=== PATIENT | female | born 1965 | race Caucasian/White ===

== ENCOUNTER → 2016-07-31 | Outpatient (CLI) | payer BC ==
--- NOTE | 2016-07-31 13:42 | MY ---
EXAMINATION: Bilateral digital mammography utilizing CAD. HISTORY: Screening exam. Comparison is made to previous studies dated 07/26/2015, 01/30/2014. FINDINGS: Bilateral scattered fibroglandular densities. No suspicious calcifications, masses or ar chitectural distortions. No pathologic appearing lymph nodes, no abnormal skin thickening or nippl e inversion. CAD highlighted regions appear normal at this time. IMPRESSION: BI-RADS category I - negative mammogram. Continued screening according to ACR-ACS gu idelines suggested. THE FALSE-NEGATIVE RATE OF MAMMOGRAM IS APPROXIMATELY 10%. MANAGEMENT OF A PALPABLE ABNORMALITY MUST BE BASED UPON CLINICAL GROUNDS. SENSITIVITY FOR DETECTION OF ABNORMALITIES IN DENSE BREASTS IS LOW. NOTE: A letter will be sent to the patient regarding findings. [facility] -- NOHEMI Walsh [phone] - FAX [phone]
== END ==
LOC: MW.MAM 08:23
PROVIDERS: ATTEND Family Medicine
DX: Z12.31 Encounter for screening mammogram for malignant neoplasm of breast (principal)
CPT/HCPCS: G0202; G0202-26

== ENCOUNTER 2016-10-23 07:35 | Emergency (ER) | payer BC ==
[2016-10-23] MEDS ORDERED: Ondansetron 4 MG/2 ML SDV IVPUSH ONE (07:50)
[2016-10-23] MEDS ORDERED: Morphine 2 MG/ML Syringe IVPUSH ONE (07:50)
[2016-10-23] MEDS ORDERED: Sodium Chloride 0.9% 1,000 ML IV ONE (07:50)
[2016-10-23 08:23] LABS: CHLORIDE,CL 109 mmol/L (98-110); SODIUM,NA 140 mmol/L (136-146)
--- NOTE | 2016-10-23 08:39 | CR ---
EXAMINATION: Portable chest radiograph. HISTORY: Shortness of breath. FINDINGS: The trachea is midline. The cardiomediastinal silhouette is within normal limits. No pulmonary infil trates, effusions or pneumothorax. Osseous structures appear unremarkable. IMPRESSION: No acute cardiopulmonary process.
--- NOTE | 2016-10-23 08:46 | EDM.PDOC ---
ED HPI GENERAL MEDICAL PROBLEM - General Chief Complaint: Chest Pain Stated Complaint: CHEST AND BACK PAIN Time Seen by Provider: 10/23/16 07:42 Source of Information: Reports: Patient History Limitations: Reports: No Limitations - History of Present Illness INITIAL COMMENTS - FREE TEXT/NARRATIVE: History of present illness: []Patient started having epigastric pain radiating to her back last night, she also had an episode of bilateral leg pain with her calves becoming "hard as rock " last night and are now sore and developed buttock pain while in the ED. She has had no fevers or chills no nausea vomiting and states that she has had this symptom several years ago. She has a history of anxiety presents with similar symptoms in the past. Review of systems: As per history of present illness and below otherwise all systems reviewed and negative. Past medical history: As per history of present illness and as reviewed below otherwise noncontributory. Surgical history: As per history of present illness and as reviewed below otherwise noncontributory. Social history: No reported history of drug or alcohol abuse. Family history: As per history of present illness and as reviewed below otherwise noncontributory. Physical exam: General: Well developed, well nourished in NAD HEENT: Atraumatic, normocephalic, pupils reactive, negative for conjunctival pallor or scleral icterus, mucous membranes moist, throat clear, neck supple, nontender, trachea midline. Lungs: Clear to auscultation, breath sounds equal bilaterally, chest nontender. No respiratory distress, or accessory muscle use No rales or rhonchi. Heart: S1S2, regular, negative for clicks, rubs, or JVD. Femoral and distal pulses palpable with brisk capillary refill distally. Abdomen: Soft, nondistended, mild epigastric and left upper quadrant tenderness without rebound or guarding. Negative for masses or hepatosplenomegaly. Negative for costovertebral tenderness. Pelvis: Stable nontender. Genitourinary: Deferred. Rectal: Deferred. Extremities: Atraumatic, negative for cords, bilateral calf pain, without edema or discoloration of extremities, sensation intact. Neurovascular unremarkable. Neuro: Awake, alert, oriented. Cranial nerves II through XII unremarkable. Cerebellum unremarkable. Motor and sensory unremarkable throughout. Exam nonfocal. Diagnostics: []EKG shows normal sinus rhythm without any ischemia, CBC and chemistries are normal including troponin, d-dimer Therapeutics: []She was hydrated given 2 mg morphine for pain with marked improvement Impression: []Generalized body aches, abdominal pain, Plan: []Motrin for pain increase fluids follow up with PMD Definitive disposition and diagnosis as appropriate pending reevaluation and review of above. mid back/sternum/left side ribs Pain Score (Numeric/FACES): 4 - Related Data Allergies Allergy/AdvReac Type Severity Reaction Status Date / Time acetaminophen Allergy Nausea Verified 10/23/16 07:47 [From Lorcet 10650] atorvastatin Allergy myalgia Verified 10/23/16 07:47 bupropion HCl Allergy Rash Verified 10/23/16 07:47 [From Wellbutrin] cashew nut Allergy Rash Verified 10/23/16 07:47 codeine Allergy Nausea Verified 10/23/16 07:47 fluoxetine HCl [From Prozac] Allergy Nausea Verified 10/23/16 07:47 hydrocodone bitartrate Allergy Nausea Verified 10/23/16 07:47 [From Lorcet 10650] quetiapine fumarate Allergy Nausea Verified 10/23/16 07:47 [From Seroquel] sertraline HCl [From Zoloft] Allergy Rash Verified 10/23/16 07:47 Sulfa (Sulfonamide Allergy Rash Verified 10/23/16 07:47 Antibiotics) topiramate [From Topamax] Allergy Hives Verified 10/23/16 07:47 Home Meds: Home Meds Levothyroxine [Sythroid] 88 mcg PO DAILY 07/27/14 [History] Lisinopril 10 mg PO DAILY 07/27/14 [History] Past Medical History HEENT History: Reports: Impaired Vision Cardiovascular History: Reports: High Cholesterol, Hypertension Respiratory History: Reports: Sleep Apnea Other Respiratory History: states has mild sleep apnea- not sure if she needs a cpap, awaiting physician's evaluation. Gastrointestinal History: Reports: GERD Genitourinary History: Reports: None [employer] History: Reports: None Musculoskeletal History: Reports: Arthritis Neurological History: Reports: None Psychiatric History: Reports: Anxiety, Depression Endocrine/Metabolic History: Reports: Other (See Below) Other Endocrine/Metabolic History: graves disease Hematologic History: Reports: None Immunologic History: Reports: None Oncologic (Cancer) History: Reports: None Dermatologic History: Reports: Psoriasis - Infectious Disease History Infectious Disease History: Reports: Chicken Pox - Past Surgical History Head Surgeries/Procedures: Reports: None Cardiovascular Surgical History: Reports: Other (See Below) GI Surgical History: Reports: Cholecystectomy, Colonoscopy Social & Family History - Family History Family Medical History: Noncontributory - Tobacco Use Smoking Status *Q: Current Every Day Smoker Years of Tobacco use: 30 Packs/Tins Daily: 0.5 - Alcohol Use Days Per Week of Alcohol Use: 0 - Recreational Drug Use Recreational Drug Use: No ED ROS GENERAL - Review of Systems Review Of Systems: See Below (See history of present illness) ED EXAM, GENERAL - Physical Exam Exam: See Below (See history of present illness) Course - Vital Signs Last Recorded V/S: Last Vital Signs Temp 36.7 C 10/23/16 07:49 Pulse 88 10/23/16 07:49 Resp 16 10/23/16 07:49 BP 136/93 H 10/23/16 07:49 Pulse Ox 99 10/23/16 07:49 - Orders/Labs/Meds Orders: Active Orders 24 hr Category Date Time Status EKG 12 Lead [EKG Documentation Completion] [RC] STAT Care 10/23/16 07:29 Active Chest 1V Frontal [CR] Stat Exams 10/23/16 07:51 Taken Sodium Chloride 0.9% [Normal Saline] 1,000 ml Med 10/23/16 07:50 Active IV .Bolus Saline Lock Insert [OM.PC] Stat Oth 10/23/16 07:50 Ordered Medication Orders Sodium Chloride (Normal Saline) 1,000 mls @ 999 mls/hr IV .Bolus ONE Stop: 10/23/16 08:50 Last Admin: 10/23/16 08:04 Dose: 999 mls/hr Labs: Laboratory Tests 10/23/16 10/23/16 10/23/16 Range/Units 07:40 07:40 07:40 WBC 5.84 (4.0-11.0) K/uL RBC 4.80 (4.30-5.90) M/uL Hgb 15.7 (12.0-16.0) g/dL Hct 44.8 (36.0-46.0) % MCV 93.3 (80.0-98.0) fL MCH 32.7 H (27.0-32.0) pg MCHC 35.0 (31.0-37.0) g/dL RDW Std Deviation 44.7 (28.0-62.0) fl RDW Coeff of Jacqueline 13 (11.0-15.0) % Plt Count 179 (150-400) K/uL MPV 11.40 (7.40-12.00) fL Neut % (Auto) 67.2 (48.0-80.0) % Lymph % (Auto) 21.2 (16.0-40.0) % [place] % (Auto) 9.9 (0.0-15.0) % Eos % (Auto) 1.4 (0.0-7.0) % Baso % (Auto) 0.3 (0.0-1.5) % Neut # (Auto) 3.9 (1.4-5.7) K/uL Lymph # (Auto) 1.2 (0.6-2.4) K/uL [place] # (Auto) 0.6 (0.0-0.8) K/uL Eos # (Auto) 0.1 (0.0-0.7) K/uL Baso # (Auto) 0.0 (0.0-0.1) K/uL Nucleated RBC % 0.0 /100WBC Nucleated RBCs # 0 K/uL D-Dimer, Quantitative 0.22 (0.0-0.52) mg/LFEU Sodium 140 (136-146) mmol/L Potassium 4.1 (3.5-5.1) mmol/L Chloride 109 (98-110) mmol/L Carbon Dioxide 23 (21-31) mmol/L BUN 13 (6.0-23.0) mg/dL Creatinine 0.9 (0.6-1.5) mg/dL Est Cr Clr Drug Dosing 60.49 mL/min Estimated GFR (MDRD) > 60.0 ml/min Glucose 114 H (60-110) mg/dL Calcium 9.1 (8.8-10.8) mg/dL Total Bilirubin 0.4 (0.1-1.5) mg/dL AST 26 (5-40) IU/L ALT 44 (8-54) IU/L Alkaline Phosphatase 90 (40-150) Troponin I (0.0-0.29) NG/ML Total Protein 7.5 (6.0-8.0) g/dL Albumin 4.5 (3.5-5.0) g/dL Globulin 3.0 (2.0-3.5) g/dL Albumin/Globulin Ratio 1.5 (1.3-2.8) Lipase 62 (7-80) U/L 10/23/16 Range/Units 07:40 WBC (4.0-11.0) K/uL RBC (4.30-5.90) M/uL Hgb (12.0-16.0) g/dL Hct (36.0-46.0) % MCV (80.0-98.0) fL MCH (27.0-32.0) pg MCHC (31.0-37.0) g/dL RDW Std Deviation (28.0-62.0) fl RDW Coeff of Ajcqueline (11.0-15.0) % Plt Count (150-400) K/uL MPV (7.40-12.00) fL Neut % (Auto) (48.0-80.0) % Lymph % (Auto) (16.0-40.0) % [place] % (Auto) (0.0-15.0) % Eos % (Auto) (0.0-7.0) % Baso % (Auto) (0.0-1.5) % Neut # (Auto) (1.4-5.7) K/uL Lymph # (Auto) (0.6-2.4) K/uL [place] # (Auto) (0.0-0.8) K/uL Eos # (Auto) (0.0-0.7) K/uL Baso # (Auto) (0.0-0.1) K/uL Nucleated RBC % /100WBC Nucleated RBCs # K/uL D-Dimer, Quantitative (0.0-0.52) mg/LFEU Sodium (136-146) mmol/L Potassium (3.5-5.1) mmol/L Chloride (98-110) mmol/L Carbon Dioxide (21-31) mmol/L BUN (6.0-23.0) mg/dL Creatinine (0.6-1.5) mg/dL Est Cr Clr Drug Dosing mL/min Estimated GFR (MDRD) ml/min Glucose (60-110) mg/dL Calcium (8.8-10.8) mg/dL Total Bilirubin (0.1-1.5) mg/dL AST (5-40) IU/L ALT (8-54) IU/L Alkaline Phosphatase (40-150) Troponin I < 0.10 (0.0-0.29) NG/ML Total Protein (6.0-8.0) g/dL Albumin (3.5-5.0) g/dL Globulin (2.0-3.5) g/dL Albumin/Globulin Ratio (1.3-2.8) Lipase (7-80) U/L Meds: Medications Generic Name Dose Route Start Last Admin Trade Name Freq PRN Reason Stop Dose Admin Sodium Chloride 1,000 mls @ 999 mls/hr 10/23/16 07:50 10/23/16 08:04 Normal Saline IV 10/23/16 08:50 999 mls/hr .Bolus ONE Administration Discontinued Medications Generic Name Dose Route Start Last Admin Trade Name Freq PRN Reason Stop Dose Admin Morphine Sulfate 2 mg 10/23/16 07:50 10/23/16 08:08 Morphine IVPUSH 10/23/16 07:51 2 mg ONETIME ONE Administration Ondansetron HCl 4 mg 10/23/16 07:50 10/23/16 08:07 Zofran IVPUSH 10/23/16 07:51 4 mg ONETIME ONE Administration Departure - Departure Time of Disposition: 08:41 Disposition: Home, Self-Care 01 Condition: good Clinical Impression: Body aches - Discharge Information Forms: ED Department Discharge Additional Instructions: The following information is given to patients seen in the emergency department who are being discharged to home. This information is to outline your options for follow-up care. We provide all patients seen in our emergency department with a follow-up referral. The need for follow-up, as well as the timing and circumstances, are variable depending upon the specifics of your emergency department visit. If you don't have a primary care physician on staff, we will provide you with a referral. We always advise you to contact your personal physician following an emergency department visit to inform them of the circumstance of the visit and for follow-up with them and/or the need for any referrals to a consulting specialist. The emergency department will also refer you to a specialist when appropriate. This referral assures that you have the opportunity for follow-up care with a specialist. All of these measure are taken in an effort to provide you with optimal care, which includes your follow-up. Under all circumstances we always encourage you to contact your private physician who remains a resource for coordinating your care. When calling for follow-up care, please make the office aware that this follow-up is from your recent emergency room visit. If for any reason you are refused follow-up, please contact the [facility] Emergency Department at and asked to speak to the emergency department charge nurse. [facility] [address] [place] [address] - My Orders Last 24 Hours: My Active Orders 10/23/16 07:29 EKG 12 Lead [EKG Documentation Completion] [RC] STAT 10/23/16 07:50 Sodium Chloride 0.9% [Normal Saline] 1,000 ml IV .Bolus Saline Lock Insert [OM.PC] Stat 10/23/16 07:51 Chest 1V Frontal [CR] Stat - Assessment/Plan Last 24 Hours: My Active Orders 10/23/16 07:29 EKG 12 Lead [EKG Documentation Completion] [RC] STAT 10/23/16 07:50 Sodium Chloride 0.9% [Normal Saline] 1,000 ml IV .Bolus Saline Lock Insert [OM.PC] Stat 10/23/16 07:51 Chest 1V Frontal [CR] Stat
[2016-10-23 09:21] VITALS: BP 113/72
== END 2016-10-23 09:05 | disposition home or self-care (01) ==
LOC: MW.ED 07:35
DX: R10.13 Epigastric pain (principal); R10.12 Left upper quadrant pain; I10 Essential (primary) hypertension; E78.00 Pure hypercholesterolemia, unspecified; G47.30 Sleep apnea, unspecified; K21.9 Gastro-esophageal reflux disease without esophagitis; M19.90 Unspecified osteoarthritis, unspecified site; F41.9 Anxiety disorder, unspecified; F32.9 Major depressive disorder, single episode, unspecified; F17.210 Nicotine dependence, cigarettes, uncomplicated; Z98.890 Other specified postprocedural states; Z79.899 Other long term (current) drug therapy; Z88.2 Allergy status to sulfonamides; Z88.5 Allergy status to narcotic agent; Z88.6 Allergy status to analgesic agent; Z88.8 Allergy status to other drugs, medicaments and biological substances; Z91.018 Allergy to other foods
CPT/HCPCS: 36415; 71010; 80053; 83690; 84484; 85025; 85379; 93005; 96361; 96374; 96375; 99285; J2270; J2405; J7040; 99284

== ENCOUNTER 2019-04-21 12:31 | Emergency (ER) | payer BC ==
[2019-04-21] MEDS ORDERED: Sodium Chloride 0.9% 10 ML Syringe FLUSH PRN (12:33)
[2019-04-21] MEDS ORDERED: Sodium Chloride 0.9% 1,000 ML IV ONE (12:33)
[2019-04-21] MEDS ORDERED: Sodium Chloride 0.9% 2.5 ML Syringe FLUSH PRN (12:33)
--- NOTE | 2019-04-21 12:39 | EDM.PDOC ---
ED HPI GENERAL MEDICAL PROBLEM - General Stated Complaint: LIGHT HEADED Time Seen by Provider: 04/21/19 12:34 Source of Information: Reports: Patient History Limitations: Reports: No Limitations - History of Present Illness INITIAL COMMENTS - FREE TEXT/NARRATIVE: HISTORY AND PHYSICAL: History of present illness: Patient is a 53-year-old female who presents to the emergency room with complaints of palpitations, near syncope and generally feeling unwell. She states this morning she was sitting at her desk while at work and she felt "shaky". She does have a history of type 2 diabetes and has had episodes of hyper glycemia and hypoglycemia. She thought maybe her blood sugar was low and ate some candy. Her symptoms did not improve decided she was going to drive herself to the emergency room. While in her vehicle she states she had palpitations and thought she was going to pass out. 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 Upon arrival she states she feels still tremulous and generally unwell. Patient denies any fever, chills, headache, change in vision, neck pain or stiffness. Denies any chest pain, back pain, shortness of breath or cough. Denies any abdominal pain, nausea, vomiting, diarrhea, constipation or dysuria. Has not noted any blood in urine or stool. Patient has been eating and drinking appropriately. Review of systems: As per history of present illness and below otherwise all systems reviewed and negative. Past medical history: As per history of present illness and as reviewed below otherwise noncontributory. Surgical history: As per history of present illness and as reviewed below otherwise noncontributory. Social history: See social history for further information Family history: As per history of present illness and as reviewed below otherwise noncontributory. Physical exam: General: Well-developed and well-nourished 53-year-old female. Alert and oriented. Nontoxic appearing and in no acute distress. HEENT: Atraumatic, normocephalic, pupils equal and reactive bilaterally, negative for conjunctival pallor or scleral icterus, mucous membranes moist, TMs normal bilaterally, throat clear, neck supple, nontender, trachea midline. No drooling or trismus noted. No meningeal signs. No hot potato voice noted. Lungs: Clear to auscultation, breath sounds equal bilaterally, chest nontender. Heart: S1S2, regular rate and rhythm without overt murmur Abdomen: Soft, nondistended, nontender. Negative for masses or hepatosplenomegaly. Negative for costovertebral tenderness. Pelvis: Stable nontender. Skin: Intact, warm, dry. No lesions or rashes noted. Extremities: Atraumatic, moves all extremities per self without difficulty or deficits, negative for cords or calf pain. Neurovascular unremarkable. Neuro: Awake, alert, oriented. Cranial nerves II through XII unremarkable. Cerebellum unremarkable. Motor and sensory unremarkable throughout. Exam nonfocal. Notes: Lab work is unremarkable. Negative head CT and chest x-ray. Orthostatic vital signs are unremarkable. Patient states she does feel improved since arrival to the emergency room and receiving fluids. She has been up to ambulate to use the bathroom without assistance. All diagnostics were shared with the patient. We did discuss admission which she declines at this time. We discussed signs and symptoms that would prompt her to return to the emergency room. Supportive care measures were reviewed and discussed. Voices understanding and is agreeable to plan of care. Denies any further questions or concerns at this time. Diagnostics: CBC, CMP, UA, TSH, Troponin, EKG, CXR, Head CT, Orthostatic VS, Influenza Therapeutics: IV fluids Prescription: None Impression: Lightheaded Plan: 1. Please use Tylenol and/or Ibuprofen as needed for pain and fever management. 2. Get plenty of Rest. Encourage fluids to prevent dehydration. Small frequent meals throughout the day. Continue to monitor blood sugar as able. 3. Please follow up with your primary care provider. Return to the ED as needed as discussed. Definitive disposition and diagnosis as appropriate pending reevaluation and review of above. - Related Data Allergies Allergy/AdvReac Type Severity Reaction Status Date / Time acetaminophen Allergy Nausea Verified 10/23/16 07:47 [From Lorcet ] atorvastatin Allergy myalgia Verified 10/23/16 07:47 bupropion HCl Allergy Rash Verified 10/23/16 07:47 [From Wellbutrin] cashew nut Allergy Rash Verified 10/23/16 07:47 codeine Allergy Nausea Verified 10/23/16 07:47 fluoxetine HCl [From Prozac] Allergy Nausea Verified 10/23/16 07:47 hydrocodone bitartrate Allergy Nausea Verified 10/23/16 07:47 [From Lorcet ] quetiapine fumarate Allergy Nausea Verified 10/23/16 07:47 [From Seroquel] sertraline HCl [From Zoloft] Allergy Rash Verified 10/23/16 07:47 Sulfa (Sulfonamide Allergy Rash Verified 10/23/16 07:47 Antibiotics) topiramate [From Topamax] Allergy Hives Verified 10/23/16 07:47 Home Meds: Home Meds Levothyroxine [Sythroid] 88 mcg PO DAILY 07/27/14 [History] Lisinopril 10 mg PO DAILY 07/27/14 [History] Past Medical History HEENT History: Reports: Impaired Vision Cardiovascular History: Reports: High Cholesterol, Hypertension Respiratory History: Reports: Sleep Apnea Other Respiratory History: states has mild sleep apnea- not sure if she needs a cpap, awaiting physician's evaluation. Gastrointestinal History: Reports: GERD Genitourinary History: Reports: None [employer]ER History: Reports: None Musculoskeletal History: Reports: Arthritis Neurological History: Reports: None Psychiatric History: Reports: Anxiety, Depression Endocrine/Metabolic History: Reports: Other (See Below) Other Endocrine/Metabolic History: graves disease Hematologic History: Reports: None Immunologic History: Reports: None Oncologic (Cancer) History: Reports: None Dermatologic History: Reports: Psoriasis - Infectious Disease History Infectious Disease History: Reports: Chicken Pox - Past Surgical History Head Surgeries/Procedures: Reports: None Cardiovascular Surgical History: Reports: Other (See Below) GI Surgical History: Reports: Cholecystectomy, Colonoscopy Social & Family History - Family History Family Medical History: Noncontributory - Caffeine Use Caffeine Use: Reports: None ED ROS GENERAL - Review of Systems Review Of Systems: Comprehensive ROS is negative, except as noted in HPI. ED EXAM, GENERAL - Physical Exam Exam: See Below (SEe dictation) Course - Vital Signs Last Recorded V/S: Last Vital Signs Temp 97.7 F 04/21/19 12:36 Pulse 92 04/21/19 12:36 Resp 18 04/21/19 12:36 BP 139/78 04/21/19 12:36 Pulse Ox 99 04/21/19 12:36 Orthostatic Blood Pressure [ 146/91 Standing] Orthostatic Blood Pressure [ 129/72 Sitting] Orthostatic Blood Pressure [ 129/76 Supine] - Orders/Labs/Meds Orders: Active Orders 24 hr Category Date Time Status EKG Documentation Completion [RC] STAT Care 04/21/19 12:33 Active Orthostatic Vital Signs [RC] ASDIRECTED Care 04/21/19 12:33 Active COMPREHENSIVE METABOLIC PN,CMP [CHEM] Stat Lab 04/21/19 12:35 Results TROPONIN I [CHEM] Stat Lab 04/21/19 12:35 Results TSH [CHEM] Stat Lab 04/21/19 12:35 Results Sodium Chloride 0.9% [Saline Flush] Med 04/21/19 12:33 Active 10 ml FLUSH ASDIRECTED PRN Sodium Chloride 0.9% [Saline Flush] Med 04/21/19 12:33 Active 2.5 ml FLUSH ASDIRECTED PRN Saline Lock Insert [OM.PC] Stat Oth 04/21/19 12:33 Ordered Medication Orders Sodium Chloride (Saline Flush) 10 ml FLUSH ASDIRECTED PRN PRN Reason: Keep Vein Open Sodium Chloride (Saline Flush) 2.5 ml FLUSH ASDIRECTED PRN PRN Reason: Keep Vein Open Labs: Laboratory Tests 04/21/19 04/21/19 04/21/19 Range/Units 12:35 12:35 13:04 WBC 6.55 (4.0-11.0) K/uL RBC 4.73 (4.30-5.90) M/uL Hgb 15.7 (12.0-16.0) g/dL Hct 44.8 (36.0-46.0) % MCV 94.7 (80.0-98.0) fL MCH 33.2 H (27.0-32.0) pg MCHC 35.0 (31.0-37.0) g/dL RDW Std Deviation 44.5 (28.0-62.0) fl RDW Coeff of Jacqueline 13 (11.0-15.0) % Plt Count 191 (150-400) K/uL MPV 12.30 H (7.40-12.00) fL Neut % (Auto) 55.1 (48.0-80.0) % Lymph % (Auto) 31.3 (16.0-40.0) % Garfield % (Auto) 11.0 (0.0-15.0) % Eos % (Auto) 2.0 (0.0-7.0) % Baso % (Auto) 0.6 (0.0-1.5) % Neut # (Auto) 3.6 (1.4-5.7) K/uL Lymph # (Auto) 2.1 (0.6-2.4) K/uL Garfield # (Auto) 0.7 (0.0-0.8) K/uL Eos # (Auto) 0.1 (0.0-0.7) K/uL Baso # (Auto) 0.0 (0.0-0.1) K/uL Nucleated RBC % 0.0 /100WBC Nucleated RBCs # 0 K/uL Sodium 138 (136-145) mmol/L Potassium 3.6 (3.5-5.1) mmol/L Chloride 103 (98-107) mmol/L Carbon Dioxide 26.1 (21.0-32.0) mmol/L BUN 12 (7.0-18.0) mg/dL Creatinine 0.9 (0.6-1.0) mg/dL Est Cr Clr Drug Dosing 59.11 mL/min Estimated GFR (MDRD) > 60.0 ml/min Glucose 192 H (74-106) mg/dL Calcium 8.2 L (8.5-10.1) mg/dL Total Bilirubin 0.5 (0.2-1.0) mg/dL Alkaline Phosphatase 106 (46-116) U/L Troponin I < 0.050 (0.000-0.056) ng/mL Total Protein 7.5 (6.4-8.2) g/dL Albumin 3.9 (3.4-5.0) g/dL Globulin 3.6 (2.6-4.0) g/dL Albumin/Globulin Ratio 1.1 (0.9-1.6) TSH 3rd Generation 1.87 (0.36-3.74) uIU/mL Urine Color YELLOW Urine Appearance CLEAR Urine pH 6.0 (5.0-8.0) Ur Specific [place] <= 1.005 (1.001-1.035) Urine Protein NEGATIVE (NEGATIVE) mg/dL Urine Glucose (UA) 250 H (NEGATIVE) mg/dL Urine Ketones NEGATIVE (NEGATIVE) mg/dL Urine Occult Blood NEGATIVE (NEGATIVE) Urine Nitrite NEGATIVE (NEGATIVE) Urine Bilirubin NEGATIVE (NEGATIVE) Urine Urobilinogen 0.2 (<2.0) EU/dL Ur Leukocyte Esterase NEGATIVE (NEGATIVE) Meds: Medications Generic Name Dose Route Start Last Admin Trade Name Freq PRN Reason Stop Dose Admin Sodium Chloride 10 ml 04/21/19 12:33 Saline Flush FLUSH ASDIRECTED PRN Keep Vein Open Sodium Chloride 2.5 ml 04/21/19 12:33 Saline Flush FLUSH ASDIRECTED PRN Keep Vein Open Discontinued Medications Generic Name Dose Route Start Last Admin Trade Name Freq PRN Reason Stop Dose Admin Sodium Chloride 1,000 mls @ 999 mls/hr 04/21/19 12:33 Normal Saline IV 04/21/19 13:33 STAT ONE Departure - Departure Time of Disposition: 14:12 Disposition: Home, Self-Care 01 Clinical Impression: Lightheaded - Discharge Information Instructions: Dizziness, [id number] Referrals: PCP,Unobtain [Primary Care Provider] - Additional Instructions: The following information is given to patients seen in the emergency department who are being discharged to home. This information is to outline your options for follow-up care. We provide all patients seen in our emergency department with a follow-up referral. The need for follow-up, as well as the timing and circumstances, are variable depending upon the specifics of your emergency department visit. If you don't have a primary care physician on staff, we will provide you with a referral. We always advise you to contact your personal physician following an emergency department visit to inform them of the circumstance of the visit and for follow-up with them and/or the need for any referrals to a consulting specialist. The emergency department will also refer you to a specialist when appropriate. This referral assures that you have the opportunity for follow-up care with a specialist. All of these measure are taken in an effort to provide you with optimal care, which includes your follow-up. Under all circumstances we always encourage you to contact your private physician who remains a resource for coordinating your care. When calling for follow-up care, please make the office aware that this follow-up is from your recent emergency room visit. If for any reason you are refused follow-up, please contact the [facility] Emergency Department at and asked to speak to the emergency department charge nurse. [facility] [address] [place] [id number] [address] 1. Please use Tylenol and/or Ibuprofen as needed for pain and fever management. 2. Get plenty of Rest. Encourage fluids to prevent dehydration. Small frequent meals throughout the day. Continue to monitor blood sugar as able. 3. Please follow up with your primary care provider. Return to the ED as needed as discussed. - My Orders Last 24 Hours: My Active Orders 04/21/19 12:33 EKG Documentation Completion [RC] STAT Orthostatic Vital Signs [RC] ASDIRECTED Sodium Chloride 0.9% [Saline Flush] 10 ml FLUSH ASDIRECTED PRN Sodium Chloride 0.9% [Saline Flush] 2.5 ml FLUSH ASDIRECTED PRN Saline Lock Insert [OM.PC] Stat 04/21/19 12:35 COMPREHENSIVE METABOLIC PN,CMP [CHEM] Stat TROPONIN I [CHEM] Stat TSH [CHEM] Stat - Assessment/Plan Last 24 Hours: My Active Orders 04/21/19 12:33 EKG Documentation Completion [RC] STAT Orthostatic Vital Signs [RC] ASDIRECTED Sodium Chloride 0.9% [Saline Flush] 10 ml FLUSH ASDIRECTED PRN Sodium Chloride 0.9% [Saline Flush] 2.5 ml FLUSH ASDIRECTED PRN Saline Lock Insert [OM.PC] Stat 04/21/19 12:35 COMPREHENSIVE METABOLIC PN,CMP [CHEM] Stat TROPONIN I [CHEM] Stat TSH [CHEM] Stat
--- NOTE | 2019-04-21 13:06 | CR ---
Chest: Portable view of the chest was obtained. Comparison: Prior chest x-ray of 02/08/17. Heart size and mediastinum are normal. Lungs are clear. Bony structures are grossly intact. Surgical clips are seen prior cholecystectomy. Impression: 1. Nothing acute is seen on portable chest x-ray. 2. Other incidental findings. Diagnostic code #2 This report was dictated in [place] Standard Time MTDD
[2019-04-21 13:28] LABS: BLOOD UREA NITROGEN,BUN 12 mg/dL (7.0-18.0); CARBON DIOXIDE,CO2 26.1 mmol/L (21.0-32.0); CHLORIDE,CL 103 mmol/L (98-107); GLUCOSE RANDOM 192 mg/dL (74-106); POTASSIUM,K 3.6 mmol/L (3.5-5.1); SODIUM,NA 138 mmol/L (136-145)
--- NOTE | 2019-04-21 13:59 | CT ---
INDICATION: Headache, dizziness. COMPARISON: Head CT dated 06/21/2015 TECHNIQUE: A CT volumetric acquisition was performed of the brain without IV contrast. FINDINGS: There is no evidence of a subdural or epidural hematoma. There is no evidence of subarachnoid hemorrhage or intraparenchymal bleeding. The CT images reveal a normal appearance of the cerebral ventricles and basal cisterns. There is no evidence of localized tissue infarction or mass effect. There is normal gómez white matter differentiation. The mastoid air cells and middle ear cavities are clear. The calvarium appears intact. There is normal aeration of the visualized paranasal sinuses. IMPRESSION: Negative head CT. Please note that all CT scans at this facility use dose modulation, iterative reconstruction, and/or weight-based dosing when appropriate to reduce radiation dose to as low as reasonably achievable. Dictated by Silverio Harmon MD @ Apr 21 2019 1:52PM Signed by Dr. Silverio Harmon @ Apr 21 2019 1:56PM
[2019-04-21 14:10] VITALS: BP 115/71; PULSE 78
== END 2019-04-21 14:31 | disposition home or self-care (01) ==
LOC: MW.ED 12:31
DX: R42 Dizziness and giddiness (principal); I10 Essential (primary) hypertension; Z88.2 Allergy status to sulfonamides; Z88.8 Allergy status to other drugs, medicaments and biological substances; Z88.5 Allergy status to narcotic agent; Z79.899 Other long term (current) drug therapy; Z90.49 Acquired absence of other specified parts of digestive tract
CPT/HCPCS: 70450; 71045; 80053; 81003; 84443; 84484; 85025; 87804; 93005; 96360; 99285; J7030; 99284

== ENCOUNTER 2020-04-06 04:04 | Emergency (ER) | payer SELFPAY ==
[2020-04-06] MEDS ORDERED: Meclizine 25 MG Tab PO ONE (04:23)
--- NOTE | 2020-04-06 04:29 | EDM.PDOC ---
<Hank Grover - Last Filed: 04/06/20 06:56> ED HPI GENERAL MEDICAL PROBLEM - General Chief Complaint: General Stated Complaint: DIZZINESS Time Seen by Provider: 04/06/20 04:20 Source of Information: Reports: Patient History Limitations: Reports: No Limitations - History of Present Illness INITIAL COMMENTS - FREE TEXT/NARRATIVE: 54-year-old female presents with dizziness. She got up to go to the bathroom and as she sat down on the toilet seat she experiences acute onset room spinning sensation, associated with nausea. Symptom was transient. As she was going back to bed the dizziness sensation came back. Her symptoms improved when she fixated at the ground. Associated with bilateral ringing sensation in his ears and diffuse tingling sensation in all extremities. She denies hearing loss, blurry vision, fever, chills, headache, chest pain, shortness of breath, abdominal pain, focal numbness or weakness. ROS: A 10-point review of systems, other than pertinent positives and negatives as stated per HPI, is otherwise negative Past medical history: No additional pertinent history Past Surgical history: No additional pertinent history Social history: No additional pertinent history Family history: No additional pertinent history PHYSICAL EXAM General: AOx4, GCS = 15, No distress HEENT: dry mucous membrane, fatigable horizontal nystagmus. Neck: supple, no meningismus, no Kernig or Brudzinski Cardiac: S1S2 RRR Respiratory: CTAB, no crackles or rales, no wheezing Abdomen: Soft, nontender, no rebound or guarding, nondistended, no pulsatile mass. Back: nontender Musculoskeletal: NVI distally, no deformity Neuro: No focal deficits, fatigable horizontal nystagmus. - Related Data Allergies Allergy/AdvReac Type Severity Reaction Status Date / Time acetaminophen Allergy Nausea Verified 04/06/20 04:10 [From Lorcet ] atorvastatin Allergy myalgia Verified 04/06/20 04:10 bupropion HCl Allergy Rash Verified 04/06/20 04:10 [From Wellbutrin] cashew nut Allergy Rash Verified 04/06/20 04:10 codeine Allergy Nausea Verified 04/06/20 04:10 fluoxetine HCl [From Prozac] Allergy Nausea Verified 04/06/20 04:10 hydrocodone bitartrate Allergy Nausea Verified 04/06/20 04:10 [From Lorcet ] quetiapine fumarate Allergy Nausea Verified 04/06/20 04:10 [From Seroquel] sertraline HCl [From Zoloft] Allergy Rash Verified 04/06/20 04:10 Sulfa (Sulfonamide Allergy Rash Verified 04/06/20 04:10 Antibiotics) topiramate [From Topamax] Allergy Hives Verified 04/06/20 04:10 Home Meds: Home Meds Levothyroxine [Sythroid] 88 mcg PO DAILY 07/27/14 [History] Lisinopril 10 mg PO DAILY 07/27/14 [History] Meclizine [Antivert] 25 mg PO TID PRN #15 tab 04/06/20 [Rx] Past Medical History HEENT History: Reports: Impaired Vision Cardiovascular History: Reports: High Cholesterol, Hypertension Respiratory History: Reports: Sleep Apnea Other Respiratory History: states has mild sleep apnea- not sure if she needs a cpap, awaiting physician's evaluation. Gastrointestinal History: Reports: GERD Genitourinary History: Reports: None MOSAIC TILER History: Reports: None Musculoskeletal History: Reports: Arthritis Neurological History: Reports: None Psychiatric History: Reports: Anxiety, Depression Endocrine/Metabolic History: Reports: Other (See Below) Other Endocrine/Metabolic History: graves disease Hematologic History: Reports: None Immunologic History: Reports: None Oncologic (Cancer) History: Reports: None Dermatologic History: Reports: Psoriasis - Infectious Disease History Infectious Disease History: Reports: Chicken Pox - Past Surgical History Head Surgeries/Procedures: Reports: None Cardiovascular Surgical History: Reports: Other (See Below) Other Cardiovascular Surgeries/Procedures: Heart Cath with no stent placement GI Surgical History: Reports: Cholecystectomy, Colonoscopy Female Surgical History: Reports: Other (See Below) Other Female Surgeries/Procedures: hx laparoscopy, hysteroscopy, D&C x4 Social & Family History - Family History Family Medical History: No Pertinent Family History - Tobacco Use Tobacco Use Status *Q: Current Every Day Tobacco User Years of Tobacco use: 25 Packs/Tins Daily: 1 - Caffeine Use Caffeine Use: Reports: Soda - Recreational Drug Use Recreational Drug Use: No ED ROS GENERAL - Review of Systems Review Of Systems: See Below (ictationsee dictation) ED EXAM, GENERAL - Physical Exam Exam: See Below (see dictation) #1 Interpretation EKG Interpretation Comments: Heart rate = 74 bpm, normal sinus rhythm, normal QRS interval, no STEMI. EKG and rhythm strip interpreted by me at 1837 Course - Re-Assessments/Exams Free Text/Narrative Re-Assessment/Exam: 04/06/20 04:31 After p.o. meclizine 25 mg, her dizziness is unchanged, will give IV Valium 5 mg. 04/06/20 06:28 Patient is still feeling the dizziness 04/06/20 06:59 Patient signed out to Dr. Lagunas for ultimate disposition. Departure - Departure Time of Disposition: 06:29 Disposition: Home, Self-Care 01 Condition: Good Clinical Impression: Dizziness, Vertigo - Discharge Information *PRESCRIPTION DRUG MONITORING PROGRAM REVIEWED*: Not Applicable *COPY OF PRESCRIPTION DRUG MONITORING REPORT IN PATIENT AMBERLY: Not Applicable Sepsis Event Note (ED) - Evaluation Sepsis Screening Result: No Definite Risk <Daryl Lagunas - Last Filed: 04/06/20 10:35> Course - Vital Signs Last Recorded V/S: Last Vital Signs Temp 96.8 F L 04/06/20 10:20 Pulse 77 04/06/20 10:20 Resp 18 04/06/20 10:20 BP 115/73 04/06/20 10:20 Pulse Ox 97 04/06/20 10:20 - Orders/Labs/Meds Orders: Active Orders 24 hr Category Date Time Status EKG Documentation Completion [RC] STAT Care 04/06/20 06:26 Active Sodium Chloride 0.9% [Saline Flush] Med 04/06/20 06:25 Active 10 ml FLUSH ASDIRECTED PRN Sodium Chloride 0.9% [Saline Flush] Med 04/06/20 06:25 Active 2.5 ml FLUSH ASDIRECTED PRN Saline Lock Insert [OM.PC] Stat Oth 04/06/20 06:25 Ordered Medication Orders Sodium Chloride (Saline Flush) 10 ml FLUSH ASDIRECTED PRN PRN Reason: Keep Vein Open Last Admin: 04/06/20 06:41 Dose: 10 ml Documented by: IMELDA Sodium Chloride (Saline Flush) 2.5 ml FLUSH ASDIRECTED PRN PRN Reason: Keep Vein Open Last Admin: 04/06/20 06:41 Dose: 2.5 ml Documented by: IMELDA Labs: Laboratory Tests 04/06/20 04/06/20 04/06/20 Range/Units 06:34 06:34 06:34 WBC 5.56 (4.0-11.0) K/uL RBC 4.82 (4.30-5.90) M/uL Hgb 15.4 (12.0-16.0) g/dL Hct 45.0 (36.0-46.0) % MCV 93.4 (80.0-98.0) fL MCH 32.0 (27.0-32.0) pg MCHC 34.2 (31.0-37.0) g/dL RDW Std Deviation 42.9 (28.0-62.0) fl RDW Coeff of Jacqueline 13 (11.0-15.0) % Plt Count 169 (150-400) K/uL MPV 11.50 (7.40-12.00) fL Neut % (Auto) 65.3 (48.0-80.0) % Lymph % (Auto) 20.3 (16.0-40.0) % [place] % (Auto) 12.6 (0.0-15.0) % Eos % (Auto) 1.3 (0.0-7.0) % Baso % (Auto) 0.5 (0.0-1.5) % Neut # (Auto) 3.6 (1.4-5.7) K/uL Lymph # (Auto) 1.1 (0.6-2.4) K/uL [place] # (Auto) 0.7 (0.0-0.8) K/uL Eos # (Auto) 0.1 (0.0-0.7) K/uL Baso # (Auto) 0.0 (0.0-0.1) K/uL Nucleated RBC % 0.0 /100WBC Nucleated RBCs # 0 K/uL INR 1.00 Sodium 142 (136-145) mmol/L Potassium 4.2 (3.5-5.1) mmol/L Chloride 108 H (98-107) mmol/L Carbon Dioxide 25.0 (21.0-32.0) mmol/L BUN 14 (7.0-18.0) mg/dL Creatinine 0.8 (0.6-1.0) mg/dL Est Cr Clr Drug Dosing 65.73 mL/min Estimated GFR (MDRD) > 60.0 ml/min Glucose 114 H (74-106) mg/dL Calcium 9.0 (8.5-10.1) mg/dL Total Bilirubin 0.4 (0.2-1.0) mg/dL AST 19 (15-37) IU/L ALT 38 (14-63) IU/L Alkaline Phosphatase 110 (46-116) U/L Troponin I < 0.050 (0.000-0.056) ng/mL Total Protein 7.0 (6.4-8.2) g/dL Albumin 3.7 (3.4-5.0) g/dL Globulin 3.3 (2.6-4.0) g/dL Albumin/Globulin Ratio 1.1 (0.9-1.6) Urine Color Urine Appearance Urine pH (5.0-8.0) Ur Specific Sargent (1.001-1.035) Urine Protein (NEGATIVE) mg/dL Urine Glucose (UA) (NEGATIVE) mg/dL Urine Ketones (NEGATIVE) mg/dL Urine Occult Blood (NEGATIVE) Urine Nitrite (NEGATIVE) Urine Bilirubin (NEGATIVE) Urine Urobilinogen (<2.0) EU/dL Ur Leukocyte Esterase (NEGATIVE) Urine RBC (0-2/HPF) Urine WBC (0-5/HPF) Ur Epithelial Cells (NONE-FEW) Urine Bacteria (NEGATIVE) SARS-CoV-2 RNA (HENOK) (NEGATIVE) 04/06/20 04/06/20 Range/Units 06:59 07:35 WBC (4.0-11.0) K/uL RBC (4.30-5.90) M/uL Hgb (12.0-16.0) g/dL Hct (36.0-46.0) % MCV (80.0-98.0) fL MCH (27.0-32.0) pg MCHC (31.0-37.0) g/dL RDW Std Deviation (28.0-62.0) fl RDW Coeff of Jacqueline (11.0-15.0) % Plt Count (150-400) K/uL MPV (7.40-12.00) fL Neut % (Auto) (48.0-80.0) % Lymph % (Auto) (16.0-40.0) % [place] % (Auto) (0.0-15.0) % Eos % (Auto) (0.0-7.0) % Baso % (Auto) (0.0-1.5) % Neut # (Auto) (1.4-5.7) K/uL Lymph # (Auto) (0.6-2.4) K/uL [place] # (Auto) (0.0-0.8) K/uL Eos # (Auto) (0.0-0.7) K/uL Baso # (Auto) (0.0-0.1) K/uL Nucleated RBC % /100WBC Nucleated RBCs # K/uL INR Sodium (136-145) mmol/L Potassium (3.5-5.1) mmol/L Chloride (98-107) mmol/L Carbon Dioxide (21.0-32.0) mmol/L BUN (7.0-18.0) mg/dL Creatinine (0.6-1.0) mg/dL Est Cr Clr Drug Dosing mL/min Estimated GFR (MDRD) ml/min Glucose (74-106) mg/dL Calcium (8.5-10.1) mg/dL Total Bilirubin (0.2-1.0) mg/dL AST (15-37) IU/L ALT (14-63) IU/L Alkaline Phosphatase (46-116) U/L Troponin I (0.000-0.056) ng/mL Total Protein (6.4-8.2) g/dL Albumin (3.4-5.0) g/dL Globulin (2.6-4.0) g/dL Albumin/Globulin Ratio (0.9-1.6) Urine Color YELLOW Urine Appearance CLEAR Urine pH 6.0 (5.0-8.0) Ur Specific Sargent <= 1.005 (1.001-1.035) Urine Protein NEGATIVE (NEGATIVE) mg/dL Urine Glucose (UA) NEGATIVE (NEGATIVE) mg/dL Urine Ketones NEGATIVE (NEGATIVE) mg/dL Urine Occult Blood TRACE-INTACT H (NEGATIVE) Urine Nitrite NEGATIVE (NEGATIVE) Urine Bilirubin NEGATIVE (NEGATIVE) Urine Urobilinogen 0.2 (<2.0) EU/dL Ur Leukocyte Esterase NEGATIVE (NEGATIVE) Urine RBC 0-2 (0-2/HPF) Urine WBC 0-1 (0-5/HPF) Ur Epithelial Cells FEW (NONE-FEW) Urine Bacteria RARE (NEGATIVE) SARS-CoV-2 RNA (HENOK) NEGATIVE (NEGATIVE) Meds: Medications Generic Name Dose Route Start Last Admin Trade Name Gin PRN Reason Stop Dose Admin Sodium Chloride 10 ml 04/06/20 06:25 04/06/20 06:41 Saline Flush FLUSH 10 ml ASDIRECTED PRN Administration Keep Vein Open Sodium Chloride 2.5 ml 04/06/20 06:25 04/06/20 06:41 Saline Flush FLUSH 2.5 ml ASDIRECTED PRN Administration Keep Vein Open Discontinued Medications Generic Name Dose Route Start Last Admin Trade Name Gin PRN Reason Stop Dose Admin Diazepam 5 mg 04/06/20 05:33 04/06/20 05:48 Valium IVPUSH 04/06/20 05:34 5 mg ONETIME ONE Administration Diphenhydramine HCl 50 mg 04/06/20 06:25 04/06/20 06:39 Benadryl IVPUSH 04/06/20 06:26 50 mg ONETIME ONE Administration Lactated Ringer's 1,000 mls @ 999 mls/hr 04/06/20 06:25 04/06/20 06:39 Ringers, Lactated IV 04/06/20 07:25 999 mls/hr .BOLUS ONE Administration Iopamidol 100 ml 04/06/20 08:33 04/06/20 08:34 Isovue Multipack-370 (76%) IVPUSH 04/06/20 08:34 100 ml ONETIME ONE Administration Meclizine HCl 25 mg 04/06/20 04:23 04/06/20 04:31 Antivert PO 04/06/20 04:24 25 mg ONETIME ONE Administration - Re-Assessments/Exams Free Text/Narrative Re-Assessment/Exam: 04/06/20 08:09 Pt remains dizzy. Patient CT head is negative. Patient will be admitted to the hospital for further work-up. 04/06/20 10:34 To be admitted to the hospital. Patient however while waiting for patient states she feels better longer has any dizziness able to ambulate to the bathroom assistance. Patient CTA head and neck completed. Patient will be discharged home likely peripheral vertigo. 04/06/20 10:35 Departure - Departure Time of Disposition: 08:10 Sepsis Event Note (ED) - Focused Exam Vital Signs: Vital Signs Temp Pulse Resp BP Pulse Ox 04/06/20 08:00 81 17 121/82 99 04/06/20 07:30 87 17 126/86 99 04/06/20 06:30 76 19 114/73 97 04/06/20 05:58 80 18 118/77 95 04/06/20 05:11 73 123/82 97 04/06/20 04:41 73 19 125/71 96 04/06/20 04:10 96.1 F L 84 20 130/78 96
[2020-04-06] MEDS ORDERED: Lactated Ringers 1,000 ML IV ONE (06:25)
[2020-04-06] MEDS ORDERED: Sodium Chloride 0.9% 2.5 ML Syringe FLUSH PRN (06:25)
[2020-04-06] MEDS ORDERED: diphenhydrAMINE 50 MG/ML SDV IVPUSH ONE (06:25)
[2020-04-06] MEDS ORDERED: Sodium Chloride 0.9% 10 ML Syringe FLUSH PRN (06:25)
[2020-04-06 07:04] LABS: BLOOD UREA NITROGEN,BUN 14 mg/dL (7.0-18.0); CHLORIDE,CL 108 mmol/L (98-107); GLUCOSE RANDOM 114 mg/dL (74-106); POTASSIUM,K 4.2 mmol/L (3.5-5.1); SODIUM,NA 142 mmol/L (136-145)
--- NOTE | 2020-04-06 07:14 | CR ---
INDICATION: Dizziness and weakness. COMPARISON: 21 April 2019. IMPRESSION: Lungs are clear. Pulmonary vascularity and cardiomediastinal silhouette are normal. No pneumothorax or effusion. Negative radiograph. Dictated by Smith Velazquez MD @ Apr 06 2020 7:11AM Signed by Dr. Smith Vleazquez @ Apr 06 2020 7:11AM
--- NOTE | 2020-04-06 07:18 | CT ---
INDICATION: Dizziness and weakness.. TECHNIQUE: CT Head without contrast. COMPARISON: 21 April 2019. FINDINGS: CSF spaces: Within normal limits for age. Brain parenchyma: The gómez-white differentiation is normal. No sign of mass, hemorrhage, or midline shift. Skull base and calvarium: The visualized paranasal sinuses and mastoid air cells are clear. The visualized orbits are grossly unremarkable. No skull fractures. . IMPRESSION: Unremarkable noncontrast head CT. Please note that all CT scans at this facility use dose modulation, iterative reconstruction, and/or weight-based dosing when appropriate to reduce radiation dose to as low as reasonably achievable. Dictated by Smith Velazquez MD @ Apr 06 2020 7:14AM Signed by Dr. Smith Velazquez @ Apr 06 2020 7:17AM
[2020-04-06] MEDS ORDERED: Iopamidol 755 MG/ML 500 ML Multipack Bottle IVPUSH ONE (08:33)
--- NOTE | 2020-04-06 10:14 | CT ---
DATE: 04/06/2020. CLINICAL HISTORY: Patient with dizziness, history of Graves disease. TECHNIQUE: Standard helical CT image acquisition through the head and neck was performed after intravenous contrast bolus enhancement. Multiplanar reconstructed images were performed and interpreted. COMPARISON: None available. FINDINGS: The origins of the great vessels from the aortic arch are patent. The origins of the right and left vertebral arteries are patent. The common carotid arteries are patent. There is no significant stenosis at the origin of the right internal carotid artery. There is no significant stenosis at the origin of the left internal carotid artery. The rest of the cervical segments of the internal carotid arteries are patent up to their intracranial segments. The intracranial segments of the internal carotid arteries are patent. The left vertebral artery is dominant. The cervical segments of the vertebral arteries are patent. The intracranial segments of the vertebral arteries are patent. The anterior and middle cerebral arteries are patent. The anterior communicating artery is visualized and within normal limits. The basilar trunk and posterior cerebral arteries are patent. There is normal opacification of major intracranial venous structures. The visualized lung apices are unremarkable. The thyroid gland is not visualized. The cervical spine is within normal limits. IMPRESSION: 1. No intracranial proximal large vessel occlusion or flow-limiting luminal stenosis. 2. Widely patent cervical arterial vasculature with no evidence of hemodynamically significant luminal stenosis. Please note that all CT scans at this facility use dose modulation, iterative reconstruction, and/or weight-based dosing when appropriate to reduce radiation dose to as low as reasonably achievable. Dictated by Noah Brown MD @ Apr 06 2020 10:09AM Signed by Dr. Noah Brown @ Apr 06 2020 10:18AM
[2020-04-06 10:21] VITALS: BP 115/73; PULSE 77
== END 2020-04-06 10:54 | disposition home or self-care (01) ==
LOC: MW.ED 04:04 → MW.MS 08:27 → UNDOADMOB 08:27
DX: R42 Dizziness and giddiness (principal); I10 Essential (primary) hypertension; F17.210 Nicotine dependence, cigarettes, uncomplicated; Z88.6 Allergy status to analgesic agent; Z88.8 Allergy status to other drugs, medicaments and biological substances; Z91.018 Allergy to other foods; Z88.5 Allergy status to narcotic agent; Z88.2 Allergy status to sulfonamides; Z79.899 Other long term (current) drug therapy; Z20.828 Contact with and (suspected) exposure to other viral communicable diseases
CPT/HCPCS: 36415; 70450; 70496; 70498; 71045; 80053; 81001; 84484; 85025; 85610; 87635; 93005; 96374; 96375; 99285; A9270; J1200; J3360; J7120; Q9967; 93010; 99283; U0002

== ENCOUNTER 2021-01-13 09:52 | Emergency (ER) | payer SELFPAY ==
[2021-01-13] MEDS ORDERED: Sodium Chloride 0.9% 2.5 ML Syringe FLUSH PRN (11:14)
[2021-01-13] MEDS ORDERED: Sodium Chloride 0.9% 10 ML Syringe FLUSH PRN (11:14)
[2021-01-13] MEDS ORDERED: Sodium Chloride 0.9% 1,000 ML IV ONE (11:37)
--- NOTE | 2021-01-13 11:49 | EDM.PDOC ---
ED HPI GENERAL MEDICAL PROBLEM - General Chief Complaint: Gastrointestinal Problem Stated Complaint: ABD PAIN Time Seen by Provider: 01/13/21 10:00 Source of Information: Reports: Patient History Limitations: Reports: No Limitations - History of Present Illness INITIAL COMMENTS - FREE TEXT/NARRATIVE: HISTORY AND PHYSICAL: History of present illness: Patient is a 55-year-old female who presents emergency room today with concern of right lower quadrant pain and bloody diarrhea since 4 AM. Patient states that she did have pork last night and 2 hours after that had a large episode of watery diarrhea. Patient states that she went to bed and woke up at 4 AM with right lower quadrant abdominal pain/tenderness and states that she has had 4-5 episodes of large bloody and mucousy stools. Patient states that her whole lower abdomen is tender but the right lower quadrant is worse. Patient states she has had her gallbladder removed and a diagnostic laparoscopy for endometrio sis but denies any other abdominal surgeries. Patient states that she has had IBS and her last colonoscopy was with Dr. Staley several years ago and states that she did have some polyps removed. Patient states she also has a history of hypertension and hyperlipidemia and prediabetes but denies any other health history. Patient denies alcohol use or any other substances. Patient denies fever, chills, chest pain, shortness of breath, or cough. Denies headache, neck stiff ness, change in vision, syncope, or near syncope. Denies nausea, vomiting, or dysuria. Has not noted any blood in urine. Patient has been eating and drinking appropriately. Review of systems: As per history of present illness and below otherwise all systems reviewed and negative. Past medical history: As per history of present illness and as reviewed below otherwise noncontributory. Surgical history: As per history of present illness and as reviewed below otherwise noncontributory. Social history: See social history for further information Family history: As per history of present illness and as reviewed below otherwise noncontributory. Physical exam: General: Patient is alert, oriented, and in no acute distress. Patient sitting comfortably on exam table. Vitals stable and reviewed by me. HEENT: Atraumatic, normocephalic, pupils equal and reactive bilaterally, negative for conjunctival pallor or scleral icterus, mucous membranes moist, throat clear, neck supple, nontender, trachea midline. No drooling or trismus noted. No meningeal signs. No hot potato voice noted. Lungs: Clear to auscultation, breath sounds equal bilaterally, chest nontender. Heart: S1S2, regular rate and rhythm without overt murmur Abdomen: Soft, nondistended, moderate RLQ tenderness without guarding, negative virk/rebound. Negative for masses or hepatosplenomegaly. Negative for costovertebral tenderness. Pelvis: Stable nontender. Genitourinary: Deferred. Rectal: Grinding Machine Operator at bedside Miriam AnujLida Hemoccult positive. No hemorrhoids, masses, fissures, or lesions noted. Tone intact. Skin: Intact, warm, dry. No lesions or rashes noted. Extremities: Atraumatic, negative for cords or calf pain. Neurovascular unrem arkable. Neuro: Awake, alert, oriented. Cranial nerves II through XII unremarkable. Cerebellum unremarkable. Motor and sensory unremarkable throughout. Exam nonfocal. Notes: Patient is a 55-year-old female who presents emergency room today secondary to right lower quadrant abdominal pain and multiple episodes of mucousy/bloody diarrhea since 4 AM. Upon arrival to the ED, patient is vitally stable and well-appearing on exam but does have moderate/significant right lower quadrant tenderness. Patient does have a Hemoccult positive stool on exam. Will obtain lab work as well as abdominal pelvic CT scan. CBC mild derangements unremarkable with stable hemoglobin and hematocrit. CMP unremarkable. Lipase within normal limits. Urinalysis clear of infection. Abdominal pelvic CT shows there is a circumferential wall thickening noted throughout the entire descending colon with associated minor pericolonic inflammatory changes. Findings are likely related to colitis with an infectious or inflammatory etiology. All incidental findings of imaging today discussed with patient to follow-up with primary care provider. Upon reevaluation of patient, treatments vitally stable and well-appearing on exam. I did thoroughly discuss patient her symptoms and she states that she has had issues with diarrhea for 10 years. Patient states that she does get episodes of flushing/heart racing/sweaty associated with diarrhea and states that she gets palpitations. Patient states that she has had this followed up with her primary care provider, Dr. Luna but states that she has not seen them in quite some time to discuss the continuation of her symptoms. Because of this, I will add on testing for possible pheochromocytoma and have this sent to her primary care provider for follow-up/further evaluation. We will repeat H&H at this time. Repeat H&H is stable. Patient does not have any episodes of bloody diarrhea in the emergency room today and was unable to obtain a stool sample. However, stool collection supplies have been provided to her to obtain this at home and return to her lab after she is able to collect this. Strict return precautions thoroughly discussed with patient. Discussed importance for follow-up with a primary care provider. Voices understanding and is agreeable to plan of care. Denies any further questions or concerns at this time. Diagnostics: CBC, CMP, UA, Lipase, Hemoccult, Stool studies/shiga, Ova & Parasite, Cdiff, Abd/Pelvic W cont Therapeutics: NS (I did offer patient pain medication but she declines at this time.) Prescription: Ciprofloxacin (Outpatient stool studies provided) Impression: Colitis H/O flushing / palpitations Plan: 1. Stool collection supplies have been provided to you. Once you are able to leave a sample, return this to our lab for further diagnostic completion. 2. You can alternate ibuprofen and Tylenol as directed for pain and discomfort. 3. Take medication as prescribed. 4. Follow-up with a primary care provider and for further colonoscopy consideration as discussed. Return to the ED as needed and as discussed. Definitive disposition and diagnosis as appropriate pending reevaluation and review of above. abd Pain Score (Numeric/FACES): 6 - Related Data Allergies Allergy/AdvReac Type Severity Reaction Status Date / Time acetaminophen Allergy Nausea Verified 04/06/20 04:10 [From Lorcet ] atorvastatin Allergy myalgia Verified 04/06/20 04:10 bupropion HCl Allergy Rash Verified 04/06/20 04:10 [From Wellbutrin] cashew nut Allergy Rash Verified 04/06/20 04:10 codeine Allergy Nausea Verified 04/06/20 04:10 fluoxetine HCl [From Prozac] Allergy Nausea Verified 04/06/20 04:10 hydrocodone bitartrate Allergy Nausea Verified 04/06/20 04:10 [From Lorcet ] quetiapine fumarate Allergy Nausea Verified 04/06/20 04:10 [From Seroquel] sertraline HCl [From Zoloft] Allergy Rash Verified 04/06/20 04:10 Sulfa (Sulfonamide Allergy Rash Verified 04/06/20 04:10 Antibiotics) topiramate [From Topamax] Allergy Hives Verified 04/06/20 04:10 Home Meds: Home Meds Levothyroxine [Sythroid] 88 mcg PO DAILY 07/27/14 [History] Lisinopril 10 mg PO DAILY 07/27/14 [History] Ciprofloxacin [Ciprofloxacin HCl] 500 mg PO BID 5 Days #10 tab 01/13/21 [Rx] Past Medical History HEENT History: Reports: Impaired Vision Cardiovascular History: Reports: High Cholesterol, Hypertension Respiratory History: Reports: Sleep Apnea Other Respiratory History: states has mild sleep apnea- not sure if she needs a cpap, awaiting physician's evaluation. Gastrointestinal History: Reports: GERD Genitourinary History: Reports: None COMB MACHINE OPERATOR History: Reports: None Musculoskeletal History: Reports: Arthritis Neurological History: Reports: None Psychiatric History: Reports: Anxiety, Depression Endocrine/Metabolic History: Reports: Other (See Below) Other Endocrine/Metabolic History: graves disease Hematologic History: Reports: None Immunologic History: Reports: None Oncologic (Cancer) History: Reports: None Dermatologic History: Reports: Psoriasis - Infectious Disease History Infectious Disease History: Reports: Chicken Pox - Past Surgical History Head Surgeries/Procedures: Reports: None Cardiovascular Surgical History: Reports: Other (See Below) Other Cardiovascular Surgeries/Procedures: Heart Cath with no stent placement GI Surgical History: Reports: Cholecystectomy, Colonoscopy Female Surgical History: Reports: Other (See Below) Other Female Surgeries/Procedures: hx laparoscopy, hysteroscopy, D&C x4 Social & Family History - Family History Family Medical History: No Pertinent Family History - Caffeine Use Caffeine Use: Reports: Soda ED ROS GENERAL - Review of Systems Review Of Systems: Comprehensive ROS is negative, except as noted in HPI. ED EXAM, GENERAL - Physical Exam Exam: See Below (see dictation) Course - Vital Signs Last Recorded V/S: Last Vital Signs Temp 97.1 F 01/13/21 15:26 Pulse 80 01/13/21 15:26 Resp 16 01/13/21 15:26 BP 109/64 01/13/21 15:26 Pulse Ox 97 01/13/21 15:26 - Orders/Labs/Meds Orders: Active Orders 24 hr Category Date Time Status Hemoccult [Fecal Occult Blood Collection] [RC] Care 01/13/21 11:19 Active ASDIRECTED C DIFFICILE AG/TOXIN W/REFLEX [RM] Stat Lab 01/13/21 11:19 Ordered METANEPHRINES, FRAC, QN, 24-HR Stat Lab 01/13/21 14:59 Ordered METANEPHRINES, FRAC., PL. FREE [REF] Stat Lab 01/13/21 14:59 Ordered OVA & PARASITES BY IMMUNOASSAY [MREF] Stat Lab 01/13/21 11:19 Ordered STOOL CULTURE/SHIGA TOXIN [MREF] Stat Lab 01/13/21 11:19 Ordered Sodium Chloride 0.9% [Saline Flush] Med 01/13/21 11:14 Active 10 ml FLUSH ASDIRECTED PRN Sodium Chloride 0.9% [Saline Flush] Med 01/13/21 11:14 Active 2.5 ml FLUSH ASDIRECTED PRN Saline Lock Insert [OM.PC] Stat Oth 01/13/21 11:14 Ordered Medication Orders Sodium Chloride (Sodium Chloride 0.9% 10 Ml Syringe) 10 ml FLUSH ASDIRECTED PRN PRN Reason: Keep Vein Open Last Admin: 01/13/21 11:54 Dose: 10 ml Documented by: YAZMIN Sodium Chloride (Sodium Chloride 0.9% 2.5 Ml Syringe) 2.5 ml FLUSH ASDIRECTED PRN PRN Reason: Keep Vein Open Last Admin: 01/13/21 11:54 Dose: 2.5 ml Documented by: YAZMIN Labs: Laboratory Tests 01/13/21 01/13/21 01/13/21 Range/Units 11:18 11:18 14:26 WBC 6.81 (4.0-11.0) K/uL RBC 4.68 (4.30-5.90) M/uL Hgb 15.3 (12.0-16.0) g/dL Hct 43.4 (36.0-46.0) % MCV 92.7 (80.0-98.0) fL MCH 32.7 H (27.0-32.0) pg MCHC 35.3 (31.0-37.0) g/dL RDW Std Deviation 43.5 (28.0-62.0) fl RDW Coeff of Jacqueline 13 (11.0-15.0) % Plt Count 168 (150-400) K/uL MPV 11.60 (7.40-12.00) fL Neut % (Auto) 69.7 (48.0-80.0) % Lymph % (Auto) 20.3 (16.0-40.0) % [place] % (Auto) 8.8 (0.0-15.0) % Eos % (Auto) 0.9 (0.0-7.0) % Baso % (Auto) 0.3 (0.0-1.5) % Neut # (Auto) 4.8 (1.4-5.7) K/uL Lymph # (Auto) 1.4 (0.6-2.4) K/uL [place] # (Auto) 0.6 (0.0-0.8) K/uL Eos # (Auto) 0.1 (0.0-0.7) K/uL Baso # (Auto) 0.0 (0.0-0.1) K/uL Nucleated RBC % 0.0 /100WBC Nucleated RBCs # 0 K/uL Sodium 140 (136-145) mmol/L Potassium 4.0 (3.5-5.1) mmol/L Chloride 103 (98-107) mmol/L Carbon Dioxide 27.4 (21.0-32.0) mmol/L BUN 15 (7.0-18.0) mg/dL Creatinine 0.9 (0.6-1.0) mg/dL Est Cr Clr Drug Dosing TNP Estimated GFR (MDRD) > 60.0 ml/min Glucose 90 (74-106) mg/dL Calcium 8.7 (8.5-10.1) mg/dL Total Bilirubin 0.5 (0.2-1.0) mg/dL AST 25 (15-37) IU/L ALT 49 (14-63) IU/L Alkaline Phosphatase 104 (46-116) U/L Total Protein 7.1 (6.4-8.2) g/dL Albumin 4.0 (3.4-5.0) g/dL Globulin 3.1 (2.6-4.0) g/dL Albumin/Globulin Ratio 1.3 (0.9-1.6) Lipase 128 (73-393) U/L Urine Color YELLOW Urine Appearance CLEAR Urine pH 6.5 (5.0-8.0) Ur Specific Ramsey 1.010 (1.001-1.035) Urine Protein NEGATIVE (NEGATIVE) mg/dL Urine Glucose (UA) NEGATIVE (NEGATIVE) mg/dL Urine Ketones NEGATIVE (NEGATIVE) mg/dL Urine Occult Blood TRACE-INTACT H (NEGATIVE) Urine Nitrite NEGATIVE (NEGATIVE) Urine Bilirubin NEGATIVE (NEGATIVE) Urine Urobilinogen 0.2 (<2.0) EU/dL Ur Leukocyte Esterase NEGATIVE (NEGATIVE) Urine RBC 0-1 (0-2/HPF) Urine WBC 0-2 (0-5/HPF) Ur Epithelial Cells FEW (NONE-FEW) Urine Bacteria RARE (NEGATIVE) 01/13/21 Range/Units 14:38 WBC (4.0-11.0) K/uL RBC (4.30-5.90) M/uL Hgb 14.5 (12.0-16.0) g/dL Hct 41.2 (36.0-46.0) % MCV (80.0-98.0) fL MCH (27.0-32.0) pg MCHC (31.0-37.0) g/dL RDW Std Deviation (28.0-62.0) fl RDW Coeff of Jacqueline (11.0-15.0) % Plt Count (150-400) K/uL MPV (7.40-12.00) fL Neut % (Auto) (48.0-80.0) % Lymph % (Auto) (16.0-40.0) % [place] % (Auto) (0.0-15.0) % Eos % (Auto) (0.0-7.0) % Baso % (Auto) (0.0-1.5) % Neut # (Auto) (1.4-5.7) K/uL Lymph # (Auto) (0.6-2.4) K/uL [place] # (Auto) (0.0-0.8) K/uL Eos # (Auto) (0.0-0.7) K/uL Baso # (Auto) (0.0-0.1) K/uL Nucleated RBC % /100WBC Nucleated RBCs # K/uL Sodium (136-145) mmol/L Potassium (3.5-5.1) mmol/L Chloride (98-107) mmol/L Carbon Dioxide (21.0-32.0) mmol/L BUN (7.0-18.0) mg/dL Creatinine (0.6-1.0) mg/dL Est Cr Clr Drug Dosing Estimated GFR (MDRD) ml/min Glucose (74-106) mg/dL Calcium (8.5-10.1) mg/dL Total Bilirubin (0.2-1.0) mg/dL AST (15-37) IU/L ALT (14-63) IU/L Alkaline Phosphatase (46-116) U/L Total Protein (6.4-8.2) g/dL Albumin (3.4-5.0) g/dL Globulin (2.6-4.0) g/dL Albumin/Globulin Ratio (0.9-1.6) Lipase (73-393) U/L Urine Color Urine Appearance Urine pH (5.0-8.0) Ur Specific Ramsey (1.001-1.035) Urine Protein (NEGATIVE) mg/dL Urine Glucose (UA) (NEGATIVE) mg/dL Urine Ketones (NEGATIVE) mg/dL Urine Occult Blood (NEGATIVE) Urine Nitrite (NEGATIVE) Urine Bilirubin (NEGATIVE) Urine Urobilinogen (<2.0) EU/dL Ur Leukocyte Esterase (NEGATIVE) Urine RBC (0-2/HPF) Urine WBC (0-5/HPF) Ur Epithelial Cells (NONE-FEW) Urine Bacteria (NEGATIVE) Meds: Medications Generic Name Dose Route Start Last Admin Trade Name Freq PRN Reason Stop Dose Admin Sodium Chloride 10 ml 01/13/21 11:14 01/13/21 11:54 Sodium Chloride 0.9% 10 Ml Syringe FLUSH 10 ml ASDIRECTED PRN Administration Keep Vein Open Sodium Chloride 2.5 ml 01/13/21 11:14 01/13/21 11:54 Sodium Chloride 0.9% 2.5 Ml Syringe FLUSH 2.5 ml ASDIRECTED PRN Administration Keep Vein Open Discontinued Medications Generic Name Dose Route Start Last Admin Trade Name Freq PRN Reason Stop Dose Admin Sodium Chloride 1,000 mls @ 999 mls/hr 01/13/21 11:37 01/13/21 11:54 Normal Saline IV 01/13/21 12:37 999 mls/hr STAT ONE Administration Departure - Departure Time of Disposition: 14:30 Disposition: Home, Self-Care 01 Clinical Impression: Colitis - Discharge Information Prescriptions: Ciprofloxacin [Ciprofloxacin HCl] 500 mg PO BID 5 Days #10 tab Instructions: Colitis Referrals: Giuseppe Luna MD [Primary Care Provider] - Forms: ED Department Discharge Additional Instructions: The following information is given to patients seen in the emergency department who are being discharged to home. This information is to outline your options for follow-up care. We provide all patients seen in our emergency department with a follow-up referral. The need for follow-up, as well as the timing and circumstances, are variable depending upon the specifics of your emergency department visit. If you don't have a primary care physician on staff, we will provide you with a referral. We always advise you to contact your personal physician following an emergency department visit to inform them of the circumstance of the visit and for follow-up with them and/or the need for any referrals to a consulting specialist. The emergency department will also refer you to a specialist when appropriate. This referral assures that you have the opportunity for follow-up care with a specialist. All of these measure are taken in an effort to provide you with optimal care, which includes your follow-up. Under all circumstances we always encourage you to contact your private physician who remains a resource for coordinating your care. When calling for follow-up care, please make the office aware that this follow-up is from your recent emergency room visit. If for any reason you are refused follow-up, please contact the [facility] at and asked to speak to the emergency department charge nurse. [facility] [address] [place], [place] [id number] [place] [address] 1. Stool collection supplies have been provided to you. Once you are able to leave a sample, return this to our lab for further diagnostic completion. 2. You can alternate ibuprofen and Tylenol as directed for pain and discomfort. 3. Take medication as prescribed. 4. Follow-up with a primary care provider and for further colonoscopy consideration as discussed. Return to the ED as needed and as discussed. Sepsis Event Note (ED) - Evaluation Sepsis Screening Result: No Definite Risk - Focused Exam Vital Signs: Vital Signs Temp Pulse Resp BP Pulse Ox 01/13/21 15:26 97.1 F 80 16 109/64 97 01/13/21 10:40 97.0 F 75 18 113/76 97 - My Orders Last 24 Hours: My Active Orders 01/13/21 11:14 Sodium Chloride 0.9% [Saline Flush] 10 ml FLUSH ASDIRECTED PRN Sodium Chloride 0.9% [Saline Flush] 2.5 ml FLUSH ASDIRECTED PRN Saline Lock Insert [OM.PC] Stat 01/13/21 11:19 Hemoccult [Fecal Occult Blood Collection] [RC] ASDIRECTED C DIFFICILE AG/TOXIN W/REFLEX [RM] Stat OVA & PARASITES BY IMMUNOASSAY [MREF] Stat STOOL CULTURE/SHIGA TOXIN [MREF] Stat 01/13/21 14:59 METANEPHRINES, FRAC, QN, 24-HR Stat METANEPHRINES, FRAC., PL. FREE [REF] Stat - Assessment/Plan Last 24 Hours: My Active Orders 01/13/21 11:14 Sodium Chloride 0.9% [Saline Flush] 10 ml FLUSH ASDIRECTED PRN Sodium Chloride 0.9% [Saline Flush] 2.5 ml FLUSH ASDIRECTED PRN Saline Lock Insert [OM.PC] Stat 01/13/21 11:19 Hemoccult [Fecal Occult Blood Collection] [RC] ASDIRECTED C DIFFICILE AG/TOXIN W/REFLEX [RM] Stat OVA & PARASITES BY IMMUNOASSAY [MREF] Stat STOOL CULTURE/SHIGA TOXIN [MREF] Stat 01/13/21 14:59 METANEPHRINES, FRAC, QN, 24-HR Stat METANEPHRINES, FRAC., PL. FREE [REF] Stat
[2021-01-13 12:09] LABS: BLOOD UREA NITROGEN,BUN 15 mg/dL (7.0-18.0); CARBON DIOXIDE,CO2 27.4 mmol/L (21.0-32.0); CHLORIDE,CL 103 mmol/L (98-107); GLUCOSE RANDOM 90 mg/dL (74-106); LIPASE 128 U/L (73-393); SODIUM,NA 140 mmol/L (136-145)
--- NOTE | 2021-01-13 14:03 | CT ---
INDICATION: Abdominal pain. Bloody stools. TECHNIQUE: CT abdomen and pelvis acquired with 100 Isovue 370 IV contrast. COMPARISON: None. FINDINGS: Lower chest: Normal heart size. No pericardial effusion. Lung bases are clear. Liver: Mildly decreased attenuation of the parenchyma suggests fatty infiltration. Spleen: Normal size. Pancreas: No appreciable mass or acute inflammatory changes. Gallbladder and bile ducts: Cholecystectomy. Bile duct dilatation is presumably related to reservoir effect. Kidneys: Normal size and enhancement. A few tiny low-density lesions are too small to accurately characterize but likely related to benign cysts. No hydronephrosis. Adrenal glands: Unremarkable. GI tract: No abnormally dilated bowel to suggest obstruction. Normal appendix. There is abnormal circumferential wall thickening involving the descending colon, with associated minor pericolonic inflammatory changes. Findings are likely related to colitis. Vascular structures: Atherosclerotic changes. No abdominal aortic aneurysm. Lymph nodes: No pathologically enlarged lymph nodes are identified. Miscellaneous: No free air or free fluid. Surgical clip is seen in the pelvis. Pelvic Organs: Unremarkable urinary bladder. Uterus is present. No appreciable adnexal mass. Bones: No acute abnormality. Low-grade degenerative changes. IMPRESSION: 1. There is circumferential wall thickening noted throughout the entire descending colon with associated minor pericolonic inflammatory changes. Findings are likely related to colitis, with an infectious or inflammatory etiology favored. Clinically correlate. 2. Other findings as noted. Dictated by Long Pena MD @ 01/13/2021 2:02:36 PM Please note that all CT scans at this facility use dose modulation, iterative reconstruction, and/or weight-based dosing when appropriate to reduce radiation dose to as low as reasonably achievable. Dictated by: Long Pena MD @ 01/13/2021 14:02:44 (Electronically Signed)
[2021-01-13 15:27] VITALS: BP 109/64; PULSE 80
[2021-01-13] MEDS ORDERED: Iopamidol 755 MG/ML 500 ML Multipack Bottle IVPUSH STA (17:15)
== END 2021-01-13 15:27 | disposition home or self-care (01) ==
LOC: MW.ED 09:52
DX: K52.9 Noninfective gastroenteritis and colitis, unspecified (principal); E78.00 Pure hypercholesterolemia, unspecified; I10 Essential (primary) hypertension; R00.2 Palpitations; Z79.899 Other long term (current) drug therapy; Z88.5 Allergy status to narcotic agent; Z88.2 Allergy status to sulfonamides; Z91.010 Allergy to peanuts; Z88.8 Allergy status to other drugs, medicaments and biological substances
CPT/HCPCS: 36415; 74177; 80053; 81001; 83690; 85014; 85018; 85025; 99284; J7030; Q9967

== ENCOUNTER 2021-07-26 16:22 | Emergency (ER) | payer BC ==
[2021-07-26] MEDS ORDERED: Sodium Chloride 0.9% 1,000 ML IV ONE (16:30)
[2021-07-26] MEDS ORDERED: Ondansetron 4 MG/2 ML SDV IVPUSH ONE (16:30)
[2021-07-26] MEDS ORDERED: Famotidine 20 MG/2 ML SDV IVPUSH ONE (16:30)
[2021-07-26] MEDS ORDERED: Alum Hydro/Mag Hydro/Simeth XS 15 ML, Lidocaine 2% 5 ML PO ONE ×2 (16:32)
[2021-07-26 17:27] LABS: BLOOD UREA NITROGEN,BUN 19 mg/dL (7.0-18.0); CARBON DIOXIDE,CO2 25.3 mmol/L (21.0-32.0); CHLORIDE,CL 101 mmol/L (98-107); ESTIMATED GFR 57.1 ml/min; GLUCOSE RANDOM 94 mg/dL (74-106); LIPASE 217 U/L (73-393); POTASSIUM,K 3.9 mmol/L (3.5-5.1); SODIUM,NA 138 mmol/L (136-145)
[2021-07-26 17:37] VITALS: BP 119/77; PULSE 92
== END 2021-07-26 17:43 | disposition home or self-care (01) ==
LOC: MW.ED 16:22
DX: K21.9 Gastro-esophageal reflux disease without esophagitis (principal); I10 Essential (primary) hypertension; E78.00 Pure hypercholesterolemia, unspecified; Z79.899 Other long term (current) drug therapy; Z88.0 Allergy status to penicillin; Z88.1 Allergy status to other antibiotic agents; Z88.8 Allergy status to other drugs, medicaments and biological substances; Z88.2 Allergy status to sulfonamides
CPT/HCPCS: 36415; 71045; 71045-26; 80053; 83690; 84484; 85025; 93005; 93010; 96374; 96375; 99284; 99284-25; A9270-GY; J2405; J3490; J7030

== ENCOUNTER 2021-07-28 07:16 | Emergency (ER) | payer BC ==
[2021-07-28] MEDS ORDERED: Sodium Chloride 0.9% 1,000 ML IV ONE (07:53)
[2021-07-28 08:47] LABS: BLOOD UREA NITROGEN,BUN 14 mg/dL (7.0-18.0); CARBON DIOXIDE,CO2 26.6 mmol/L (21.0-32.0); CHLORIDE,CL 103 mmol/L (98-107); ESTIMATED GFR > 60.0 ml/min; GLUCOSE RANDOM 95 mg/dL (74-106); LIPASE 166 U/L (73-393); POTASSIUM,K 3.8 mmol/L (3.5-5.1); SODIUM,NA 138 mmol/L (136-145)
[2021-07-28] MEDS ORDERED: Iopamidol 755 MG/ML 500 ML Multipack Bottle IVPUSH STA (09:24)
[2021-07-28] MEDS ORDERED: Magnesium Citrate Solution 296 ML Bottle PO ONE (10:12)
[2021-07-28] MEDS ORDERED: Famotidine 20 MG/2 ML SDV IVPUSH ONE (11:34)
[2021-07-28] MEDS ORDERED: Alum Hydro/Mag Hydro/Simeth XS 15 ML, Lidocaine 2% 5 ML PO ONE ×2 (11:35)
[2021-07-28 14:31] VITALS: BP 130/83; PULSE 81
== END 2021-07-28 13:40 | disposition home or self-care (01) ==
LOC: MW.ED 07:16
DX: K59.00 Constipation, unspecified (principal); K21.9 Gastro-esophageal reflux disease without esophagitis; E78.00 Pure hypercholesterolemia, unspecified; I10 Essential (primary) hypertension; Z88.8 Allergy status to other drugs, medicaments and biological substances; Z88.2 Allergy status to sulfonamides; Z88.5 Allergy status to narcotic agent; Z79.899 Other long term (current) drug therapy; Z72.0 Tobacco use
CPT/HCPCS: 36415; 74177; 80053; 83605; 83690; 83735; 85025; 96374; 99284; A9270; J3490; J7030; Q9967

== ENCOUNTER 2021-08-08 09:38 | Day surgery (SDC) | payer BC ==
[~2021-08-08 09:38] MED LIST: Lactated Ringers 1,000 ML IV SCH
[2021-08-08] MEDS ORDERED: Propofol 200 MG/20 ML SDV ONE ×5 (11:52→12:48)
[2021-08-08] MEDS ORDERED: Midazolam 1 MG/ML 2 ML SDV ONE (11:52)
[2021-08-08] MEDS ORDERED: fentaNYL 100 MCG/2 ML SDV ONE (11:52)
[2021-08-08] MEDS ORDERED: Lactated Ringers 1,000 ML IV SCH (13:15)
[2021-08-08 14:28] VITALS: BP 108/70; PULSE 64
== END 2021-08-08 14:29 | disposition home or self-care (01) ==
LOC: MW.SDS 09:38
PROVIDERS: ATTEND Surgery
DX: D12.0 Benign neoplasm of cecum (principal); D12.2 Benign neoplasm of ascending colon; K29.50 Unspecified chronic gastritis without bleeding; K29.80 Duodenitis without bleeding; E55.9 Vitamin D deficiency, unspecified; K31.89 Other diseases of stomach and duodenum; K21.00 Gastro-esophageal reflux disease with esophagitis, without bleeding; I10 Essential (primary) hypertension; K52.9 Noninfective gastroenteritis and colitis, unspecified; E11.69 Type 2 diabetes mellitus with other specified complication; E78.00 Pure hypercholesterolemia, unspecified; E03.9 Hypothyroidism, unspecified; E05.00 Thyrotoxicosis with diffuse goiter without thyrotoxic crisis or storm; H54.7 Unspecified visual loss; K92.1 Melena; F17.210 Nicotine dependence, cigarettes, uncomplicated; Z90.49 Acquired absence of other specified parts of digestive tract; Z88.5 Allergy status to narcotic agent; Z88.6 Allergy status to analgesic agent; Z88.8 Allergy status to other drugs, medicaments and biological substances; Z88.2 Allergy status to sulfonamides; Z91.018 Allergy to other foods; Z98.890 Other specified postprocedural states; Z79.890 Hormone replacement therapy; Z79.899 Other long term (current) drug therapy
CPT/HCPCS: 43239; 45380; 82947; J2250; J2704; J3010; J7120; 00813

== ENCOUNTER 2021-09-27 12:56 | Emergency (ER) | payer BC ==
[2021-09-27] MEDS ORDERED: Sodium Chloride 0.9% 1,000 ML IV STA (13:15)
[2021-09-27] MEDS ORDERED: Ketorolac 30 MG/ML SDV IVPUSH ONE (13:47)
[2021-09-27] MEDS ORDERED: Ondansetron 4 MG/2 ML SDV IVPUSH ONE (13:47)
[2021-09-27 13:56] LABS: CARBON DIOXIDE,CO2 25.8 mmol/L (21.0-32.0); POTASSIUM,K 3.6 mmol/L (3.5-5.1)
[2021-09-27 16:24] VITALS: BP 118/77; PULSE 73
== END 2021-09-27 16:24 | disposition home or self-care (01) ==
LOC: MW.ED 12:56
DX: N93.8 Other specified abnormal uterine and vaginal bleeding (principal); I10 Essential (primary) hypertension; Z90.49 Acquired absence of other specified parts of digestive tract; Z79.899 Other long term (current) drug therapy; Z88.6 Allergy status to analgesic agent; Z88.8 Allergy status to other drugs, medicaments and biological substances; Z88.5 Allergy status to narcotic agent; Z88.2 Allergy status to sulfonamides; Z91.018 Allergy to other foods
CPT/HCPCS: 36415; 76830; 80053; 81001; 81025; 85025; 96374; 96375; 99284; J1885; J2405; J7030; 99283

== ENCOUNTER 2021-11-06 07:48 | Day surgery (SDC) | payer BC ==
[2021-11-04 16:53] LABS: BLOOD UREA NITROGEN,BUN 23 mg/dL (7.0-18.0); CARBON DIOXIDE,CO2 27.9 mmol/L (21.0-32.0); CHLORIDE,CL 102 mmol/L (98-107); ESTIMATED GFR 75 mL/min (>60); GLUCOSE RANDOM 81 mg/dL (74-106); POTASSIUM,K 3.9 mmol/L (3.5-5.1); SODIUM,NA 140 mmol/L (136-145)
[~2021-11-06 07:48] MED LIST changes: -Lactated Ringers 1,000 ML IV SCH; +Sodium Chloride 0.9% 10 ML Syringe FLUSH PRN; +Sodium Chloride 0.9% 2.5 ML Syringe FLUSH PRN; +Sodium Chloride 0.9% 20 ML SDV IV PRN; +ceFAZolin 1 GM in Premix Bag 1 BAG IV ONE
[2021-11-06] MEDS ORDERED: Dexmedetomidine 200 MCG/2 ML SDV ONE (08:02)
[2021-11-06] MEDS ORDERED: Ketamine 500 mg/10 ML MDV ONE (08:03)
[2021-11-06] MEDS ORDERED: fentaNYL 100 MCG/2 ML SDV ONE (08:03)
[2021-11-06] MEDS ORDERED: Propofol 200 MG/20 ML SDV ONE ×2 (08:03→11:00)
[2021-11-06] MEDS ORDERED: Rocuronium 100 MG/10 ML MDV ONE (08:06)
[2021-11-06] MEDS ORDERED: Lidocaine 2% 5 ML SDV ONE (08:06)
[2021-11-06] MEDS ORDERED: Water For Injection, Sterile 20 ML ONE (08:07)
[2021-11-06] MEDS ORDERED: Metoclopramide 10 MG/2 ML SDV IVPUSH PRN (08:24)
[2021-11-06] MEDS ORDERED: fentaNYL 50 MCG/ML SDV IVPUSH PRN (08:24)
[2021-11-06] MEDS ORDERED: HYDROmorphone 1 MG/ML Syringe IVPUSH PRN (08:24)
[2021-11-06] MEDS ORDERED: Naloxone 0.4 MG/ML SDV IVPUSH PRN (08:24)
[2021-11-06] MEDS ORDERED: Albuterol 0.083% 2.5 MG/3 ML Neb Soln NEB PRN (08:24)
[2021-11-06] MEDS ORDERED: Ondansetron 4 MG/2 ML SDV IVPUSH PRN ×2 (08:24→11:37)
[2021-11-06] MEDS: Lactated Ringers 1,000 ML IV SCH ×2 (08:31→14:37)
[2021-11-06] MEDS ORDERED: Fluorescein 5 ML Vial ONE (10:03)
[2021-11-06] MEDS ORDERED: Dexamethasone 4 MG/ML 5 ML MDV ONE (10:31)
[2021-11-06] MEDS ORDERED: Ondansetron 4 MG/2 ML SDV ONE (10:52)
[2021-11-06] MEDS ORDERED: Ketorolac 30 MG/ML SDV ONE (10:52)
[2021-11-06] MEDS ORDERED: Sugammadex Sodium 200 MG/2 ML VIAL ONE (10:52)
[2021-11-06] MEDS ORDERED: ePHEDrine 50 MG/ML SDV ONE (10:59)
[2021-11-06] MEDS ORDERED: Octyl 2-Cyanoacrylate 1 Tube ONE (11:33)
[2021-11-06] MEDS ORDERED: Morphine 4 MG/ML VIAL IVPUSH PRN (11:37)
[2021-11-06] MEDS ORDERED: Promethazine 25 MG/ML SDV IM PRN (11:37)
[2021-11-06] MEDS ORDERED: Acetaminophen/oxyCODONE 325-5 MG Tab PO PRN ×2 (11:37)
[2021-11-06] MEDS ORDERED: Ketorolac 30 MG/ML SDV IVPUSH ONE (11:37)
[2021-11-06] MEDS ORDERED: Ketorolac 30 MG/ML SDV IVPUSH PRN (17:30)
[2021-11-07 06:38] LABS: CARBON DIOXIDE,CO2 25.8 mmol/L (21.0-32.0); POTASSIUM,K 4.1 mmol/L (3.5-5.1)
[2021-11-07 08:39] VITALS: BP 110/58; PULSE 62
== END 2021-11-07 09:30 | disposition home or self-care (01) ==
LOC: MW.SDS 07:48 → MW.MS 13:14 → MW.SDS 11-07 09:30
PROVIDERS: ATTEND Obstetrics & Gynecology
DX: D25.1 Intramural leiomyoma of uterus (principal); D27.0 Benign neoplasm of right ovary; N87.9 Dysplasia of cervix uteri, unspecified; N88.8 Other specified noninflammatory disorders of cervix uteri; N72 Inflammatory disease of cervix uteri; N80.0 Endometriosis of uterus; N85.8 Other specified noninflammatory disorders of uterus; F41.9 Anxiety disorder, unspecified; E78.00 Pure hypercholesterolemia, unspecified; I10 Essential (primary) hypertension; E03.9 Hypothyroidism, unspecified; F17.210 Nicotine dependence, cigarettes, uncomplicated; G47.00 Insomnia, unspecified; E11.9 Type 2 diabetes mellitus without complications; E55.9 Vitamin D deficiency, unspecified; E53.8 Deficiency of other specified B group vitamins; Z88.5 Allergy status to narcotic agent; Z88.8 Allergy status to other drugs, medicaments and biological substances; Z91.018 Allergy to other foods; Z79.899 Other long term (current) drug therapy; Z79.890 Hormone replacement therapy; Z88.2 Allergy status to sulfonamides; Z90.49 Acquired absence of other specified parts of digestive tract; Z98.890 Other specified postprocedural states
CPT/HCPCS: 00840; 36415; 80048; 84703; 85025; 85027; 86850; 86900; 86901; A9270-GY; J1100; J1170; J1885; J2405; J2704; J3010; J3490; J7030; J7120

== ENCOUNTER 2023-07-13 20:22 | Observation (INO) | payer BC ==
[2023-07-13 22:27] LABS: CORONAVIRUS COVID-19 NAA POSITIVE (NEGATIVE); INFLUENZA A NAA NEGATIVE (NEGATIVE); INFLUENZA B NAA NEGATIVE (NEGATIVE); RESPIRATORY SYNCYTIAL VIR NAA NEGATIVE (NEGATIVE)
[2023-07-13] MEDS: Sodium Chloride 0.9% 1,000 ML IV ONE (22:57)
[2023-07-13] MEDS: Ondansetron 4 MG/2 ML SDV IVPUSH ONE (22:58)
[2023-07-13] MEDS: Sodium Chloride 0.9% 10 ML Syringe FLUSH PRN (22:58)
[2023-07-13] MEDS: Sodium Chloride 0.9% 2.5 ML Syringe FLUSH PRN (22:58)
[2023-07-13] MEDS: Ketorolac 30 MG/ML SDV IVPUSH ONE (22:58)
[2023-07-13 23:10] LABS: BASOPHILS ABSOLUTE AUTO 0.01 K/uL (0.00-0.20); BASOPHILS PERCENT AUTO 0.1 % (0.0-1.0); EOSINOPHILS ABSOLUTE AUTO 0.05 K/uL (0.00-0.45); EOSINOPHILS PERCENT AUTO 0.7 % (0.0-6.0); HEMATOCRIT 41.6 % (37.0-47.0); HEMOGLOBIN 15.1 g/dL (12.0-16.0); IMMATURE GRAN ABSOLUTE AUTO 0.02 K/uL (0.00-0.05); IMMATURE GRAN PERCENT AUTO 0.3 % (0.0-0.4); LYMPHOCYTES ABSOLUTE AUTO 0.33 K/uL (1.00-4.80); LYMPHOCYTES PERCENT AUTO 4.7 % (24.0-44.0); MEAN CORPUSCULAR HEMOGLOBIN 31.9 pg (28.0-32.0); MEAN CORPUSCULAR HGB CONC 36.3 g/dL (32.0-36.0); MEAN CORPUSCULAR VOLUME 87.9 fL (83.0-99.0); MEAN PLATELET VOLUME 10.6 fL (9.4-12.3); MONOCYTES ABSOLUTE AUTO 0.72 K/uL (0.00-0.80); MONOCYTES PERCENT AUTO 10.2 % (0.0-8.0); NEUTROPHILS ABSOLUTE AUTO 5.91 K/uL (1.80-7.70); PLATELET COUNT,PLT 160 K/uL (150-400); RED BLOOD CELL COUNT 4.73 M/uL (4.10-5.30); WHITE BLOOD CELL COUNT,WBC 7.04 K/uL (3.9-11.3)
[2023-07-13 23:45] LABS: ALBUMIN 3.4 g/dL (3.4-5.0); BILIRUBIN TOTAL 0.4 mg/dL (0.2-1.0); CALCIUM 8.3 mg/dL (8.5-10.1); CARBON DIOXIDE,CO2 20.1 mmol/L (21.0-32.0); CREATININE 0.8 mg/dL (0.6-1.0); EST CRCL DRUG DOSING (CG) 62.63 mL/min; MAGNESIUM 1.9 mg/dL (1.8-2.4); POTASSIUM,K 3.7 mmol/L (3.5-5.1); PROTEIN TOTAL,TP 6.9 g/dL (6.4-8.2)
[2023-07-14] MEDS: Sodium Chloride 0.9% 1,000 ML IV ONE ×2 (00:25→01:43)
[2023-07-14] MEDS: Iopamidol 755 MG/ML 500 ML Multipack Bottle IVPUSH STA (00:31)
[2023-07-14] MEDS ORDERED: Naloxone 0.4 MG/ML SDV IVPUSH PRN (00:44)
[2023-07-14] MEDS: fentaNYL 100 MCG/2 ML SDV IVPUSH ONE (00:51)
[2023-07-14] MEDS: Lactated Ringers 1,000 ML IV SCH (02:34)
[2023-07-14 02:36] LABS: APPEARANCE,URINE CLEAR; BILIRUBIN,URINE NEGATIVE (NEGATIVE); COLOR,URINE YELLOW; GLUCOSE,URINE NEGATIVE (NEGATIVE); KETONES,URINE NEGATIVE (NEGATIVE); LEUKOCYTE ESTERASE,URINE NEGATIVE (NEGATIVE); NITRITE,URINE NEGATIVE (NEGATIVE); OCCULT BLOOD,URINE TRACE-INTACT (NEGATIVE); PROTEIN,URINE NEGATIVE (NEGATIVE); UROBILINOGEN,URINE 0.2 EU/dL (<2.0)
[2023-07-14 02:37] LABS: LACTIC ACID 0.5 mmol/L (0.4-2.0)
[2023-07-14 02:39] LABS: RBC,URINE 0-1 (0-2/HPF); WBC,URINE NONE SEEN (0-5/HPF)
[2023-07-14 02:40] LABS: BACTERIA,URINE RARE (NEGATIVE); EPITHELIAL CELLS,URINE RARE (NONE-FEW)
[2023-07-14] MEDS: Ondansetron 4 MG/2 ML SDV IVPUSH PRN (06:24)
[2023-07-14] MEDS: Pantoprazole 40 MG Tab.CR PO PRN (06:25)
[2023-07-14] MEDS: Cyanocobalamin (Vitamin B12) 500 MCG Tab PO SCH (08:58)
[2023-07-14] MEDS: Enoxaparin 40 MG/0.4 ML Syringe SUBCUT SCH (08:58)
[2023-07-14] MEDS: Cholecalciferol (Vitamin D3) 25 MCG Tab PO SCH (08:59)
[2023-07-14] MEDS: Levothyroxine 88 MCG Tab PO SCH (09:22)
[2023-07-14] MEDS: NIRMATRELVIR PO SCH (10:29)
[2023-07-14] MEDS: RITONAVIR PO SCH (10:29)
[2023-07-14] MEDS: Fluticasone NASAL Spray 16 GM Bottle NASBOTH SCH (11:28)
[2023-07-15 06:23] LABS: BASOPHILS ABSOLUTE AUTO 0.01 K/uL (0.00-0.20); BASOPHILS PERCENT AUTO 0.3 % (0.0-1.0); EOSINOPHILS ABSOLUTE AUTO 0.01 K/uL (0.00-0.45); EOSINOPHILS PERCENT AUTO 0.3 % (0.0-6.0); HEMATOCRIT 33.6 % (37.0-47.0); HEMOGLOBIN 12.2 g/dL (12.0-16.0); LYMPHOCYTES ABSOLUTE AUTO 0.67 K/uL (1.00-4.80); LYMPHOCYTES PERCENT AUTO 20.8 % (24.0-44.0); MEAN CORPUSCULAR HEMOGLOBIN 31.9 pg (28.0-32.0); MEAN CORPUSCULAR HGB CONC 36.3 g/dL (32.0-36.0); MEAN PLATELET VOLUME 10.8 fL (9.4-12.3); MONOCYTES ABSOLUTE AUTO 0.45 K/uL (0.00-0.80); NEUTROPHILS ABSOLUTE AUTO 2.08 K/uL (1.80-7.70); NEUTROPHILS PERCENT AUTO 64.6 % (41.0-71.0); PLATELET COUNT,PLT 120 K/uL (150-400); RED BLOOD CELL COUNT 3.82 M/uL (4.10-5.30); WHITE BLOOD CELL COUNT,WBC 3.22 K/uL (3.9-11.3)
[2023-07-15 06:46] LABS: ALBUMIN 2.6 g/dL (3.4-5.0); CALCIUM 7.8 mg/dL (8.5-10.1); CARBON DIOXIDE,CO2 21.9 mmol/L (21.0-32.0); CREATININE 0.8 mg/dL (0.6-1.0); EST CRCL DRUG DOSING (CG) 62.63 mL/min; PROTEIN TOTAL,TP 5.4 g/dL (6.4-8.2)
[2023-07-15 06:47] LABS: A/G RATIO 0.9 (0.9-1.6); BILIRUBIN TOTAL 0.4 mg/dL (0.2-1.0); MAGNESIUM 1.6 mg/dL (1.8-2.4)
[2023-07-15] MEDS: Potassium Chloride 20 MEQ Tab.ER PO ONE (08:15)
[2023-07-15] MEDS: Magnesium Sulfate/Water 2 GM in Premix Bag 1 BAG IV ONE (08:15)
[2023-07-15] MEDS: Oxymetazoline 0.05% Nasal Spray 30 ML Bottle NASBOTH SCH (13:40)
[2023-07-15 14:22] VITALS: BP 122/69; PULSE 65
== END 2023-07-15 13:54 | disposition home or self-care (01) ==
LOC: MW.ED 20:22 → MW.MS 07-14 02:31
PROVIDERS: ADMIT Internal Medicine; ATTEND Internal Medicine
DX: A41.9 Sepsis, unspecified organism (principal); R19.7 Diarrhea, unspecified; R53.1 Weakness; E03.9 Hypothyroidism, unspecified; U07.1 COVID-19; E78.00 Pure hypercholesterolemia, unspecified; I10 Essential (primary) hypertension; J45.909 Unspecified asthma, uncomplicated; K21.9 Gastro-esophageal reflux disease without esophagitis; F41.9 Anxiety disorder, unspecified; F32.A Depression, unspecified; F17.210 Nicotine dependence, cigarettes, uncomplicated; Z79.899 Other long term (current) drug therapy; Z79.890 Hormone replacement therapy; Z91.018 Allergy to other foods; Z88.5 Allergy status to narcotic agent; Z88.2 Allergy status to sulfonamides; Z88.8 Allergy status to other drugs, medicaments and biological substances
CPT/HCPCS: 0241U; 36415; 71045; 74177; 80053; 81001; 83605; 83690; 83735; 84484; 85025; 87040; 87086; 87324; 96361; 96374; 96375; 99285; A9270; J1650; J1885; J2405; J3010; J3475; J3490; J7030; J7120; Q9967; 93010

== ENCOUNTER 2023-09-26 14:13 | Emergency (ER) | payer BC ==
[2023-09-26 14:24] VITALS: PULSE 89
[2023-09-26] MEDS: Sodium Chloride 0.9% 1,000 ML IV ONE (14:33)
[2023-09-26] MEDS: Famotidine 20 MG/2 ML SDV IVPUSH ONE (14:33)
[2023-09-26] MEDS: diphenhydrAMINE 50 MG/ML SDV IVPUSH ONE (14:33)
[2023-09-26] MEDS: methylPREDNISolone Sodium Succinate 125 MG/2 ML SDV IVPUSH ONE (14:33)
[2023-09-26 15:35] VITALS: BP 104/63
== END 2023-09-26 15:39 | disposition home or self-care (01) ==
LOC: MW.ED 14:13
DX: T78.40XA Allergy, unspecified, initial encounter (principal); I10 Essential (primary) hypertension; E78.00 Pure hypercholesterolemia, unspecified; Z75.8 Other problems related to medical facilities and other health care; Z88.1 Allergy status to other antibiotic agents; Z88.8 Allergy status to other drugs, medicaments and biological substances; Z88.5 Allergy status to narcotic agent; Z91.018 Allergy to other foods; Z88.2 Allergy status to sulfonamides; Z79.899 Other long term (current) drug therapy; Z90.49 Acquired absence of other specified parts of digestive tract; Z86.16 Personal history of COVID-19; Z90.710 Acquired absence of both cervix and uterus
CPT/HCPCS: 96361; 96374; 96375; 99283; J1200; J2930; J3490; J7030; 99284

== ENCOUNTER 2023-11-29 10:48 | Emergency (ER) | payer BC ==
[2023-11-29] MEDS ORDERED: Sodium Chloride 0.9% 2.5 ML Syringe FLUSH PRN (10:51)
[2023-11-29] MEDS ORDERED: Sodium Chloride 0.9% 10 ML Syringe FLUSH PRN (10:51)
[2023-11-29] MEDS: Aspirin 81 MG Tab.Chew PO ONE (11:17)
[2023-11-29] MEDS: Morphine 4 MG/ML Syringe IVPUSH ONE (11:27)
[2023-11-29] MEDS: Ondansetron 4 MG/2 ML SDV IVPUSH ONE (11:28)
[2023-11-29] MEDS: Aspirin 81 MG Tab.Chew ONE (11:33)
[2023-11-29 11:41] LABS: APPEARANCE,URINE CLEAR; BILIRUBIN,URINE NEGATIVE (NEGATIVE); COLOR,URINE YELLOW; GLUCOSE,URINE NEGATIVE (NEGATIVE); KETONES,URINE NEGATIVE (NEGATIVE); LEUKOCYTE ESTERASE,URINE SMALL (NEGATIVE); NITRITE,URINE NEGATIVE (NEGATIVE); OCCULT BLOOD,URINE TRACE-INTACT (NEGATIVE); PROTEIN,URINE NEGATIVE (NEGATIVE); UROBILINOGEN,URINE 0.2 EU/dL (<2.0)
[2023-11-29 11:45] LABS: BASOPHILS ABSOLUTE AUTO 0.03 K/uL (0.00-0.20); BASOPHILS PERCENT AUTO 0.6 % (0.0-1.0); EOSINOPHILS PERCENT AUTO 1.9 % (0.0-6.0); HEMATOCRIT 44.7 % (37.0-47.0); HEMOGLOBIN 15.7 g/dL (12.0-16.0); IMMATURE GRAN ABSOLUTE AUTO 0.01 K/uL (0.00-0.05); IMMATURE GRAN PERCENT AUTO 0.2 % (0.0-0.4); LYMPHOCYTES ABSOLUTE AUTO 1.14 K/uL (1.00-4.80); LYMPHOCYTES PERCENT AUTO 22.1 % (24.0-44.0); MEAN CORPUSCULAR HEMOGLOBIN 31.8 pg (28.0-32.0); MEAN CORPUSCULAR HGB CONC 35.1 g/dL (32.0-36.0); MEAN CORPUSCULAR VOLUME 90.7 fL (83.0-99.0); MEAN PLATELET VOLUME 10.7 fL (9.4-12.3); MONOCYTES ABSOLUTE AUTO 0.56 K/uL (0.00-0.80); MONOCYTES PERCENT AUTO 10.9 % (0.0-8.0); NEUTROPHILS ABSOLUTE AUTO 3.31 K/uL (1.80-7.70); NEUTROPHILS PERCENT AUTO 64.3 % (41.0-71.0); PLATELET COUNT,PLT 182 K/uL (150-400); RED BLOOD CELL COUNT 4.93 M/uL (4.10-5.30); WHITE BLOOD CELL COUNT,WBC 5.15 K/uL (3.9-11.3)
[2023-11-29 12:10] LABS: A/G RATIO 1.3 (0.9-1.6); ALANINE AMINOTRANSFERASE,ALT 33 IU/L (14-63); ALBUMIN 4.2 g/dL (3.4-5.0); ALKALINE PHOSPHATASE 123 U/L (46-116); ASPARTATE AMNIOTRANSFERASE,AST 21 IU/L (15-37); BILIRUBIN TOTAL 0.5 mg/dL (0.2-1.0); BLOOD UREA NITROGEN,BUN 13 mg/dL (7.0-18.0); CALCIUM 9.4 mg/dL (8.5-10.1); CARBON DIOXIDE,CO2 28.5 mmol/L (21.0-32.0); CHLORIDE,CL 106 mmol/L (98-107); CREATININE 0.8 mg/dL (0.6-1.0); GLUCOSE RANDOM 104 mg/dL (74-106); LIPASE 68 U/L (16-77); POTASSIUM,K 4.8 mmol/L (3.5-5.1); PROTEIN TOTAL,TP 7.5 g/dL (6.4-8.2); SODIUM,NA 140 mmol/L (136-145)
[2023-11-29 12:11] LABS: ESTIMATED GFR 85 mL/min (>60)
[2023-11-29 12:13] LABS: BACTERIA,URINE FEW (NEGATIVE); EPITHELIAL CELLS,URINE RARE (NONE-FEW); MUCUS,URINE LIGHT (NONE-MOD); RBC,URINE NONE SEEN (0-2/HPF); WBC,URINE 0-2 (0-5/HPF)
[2023-11-29 12:19] LABS: TSH ULTRASENSITIVE 2.01 uIU/mL (0.36-3.74)
[2023-11-29 13:11] VITALS: BP 111/68; PULSE 71
== END 2023-11-29 13:14 | disposition home or self-care (01) ==
LOC: MW.ED 10:48
DX: R10.12 Left upper quadrant pain (principal); I10 Essential (primary) hypertension; E78.00 Pure hypercholesterolemia, unspecified; Z88.2 Allergy status to sulfonamides; Z91.018 Allergy to other foods; Z88.8 Allergy status to other drugs, medicaments and biological substances; Z79.890 Hormone replacement therapy; Z79.899 Other long term (current) drug therapy; Z75.8 Other problems related to medical facilities and other health care; Z86.16 Personal history of COVID-19; Z90.49 Acquired absence of other specified parts of digestive tract; Z90.710 Acquired absence of both cervix and uterus
CPT/HCPCS: 36415; 71045; 80053; 81001; 83690; 84443; 84484; 85025; 87086; 93005; 96374; 96375; 99285; A9270; J2270; J2405

== ENCOUNTER 2024-08-24 13:21 | Observation (INO) | payer BC ==
[2024-08-24] MEDS ORDERED: Sodium Chloride 0.9% 10 ML Syringe FLUSH PRN (13:38)
[2024-08-24 14:17] LABS: BASOPHILS ABSOLUTE AUTO 0.06 K/uL (0.00-0.20); BASOPHILS PERCENT AUTO 1.2 % (0.0-1.0); EOSINOPHILS ABSOLUTE AUTO 0.14 K/uL (0.00-0.45); EOSINOPHILS PERCENT AUTO 2.8 % (0.0-6.0); HEMATOCRIT 41.2 % (37.0-47.0); HEMOGLOBIN 14.7 g/dL (12.0-16.0); IMMATURE GRAN ABSOLUTE AUTO 0.01 K/uL (0.00-0.05); IMMATURE GRAN PERCENT AUTO 0.2 % (0.0-0.4); LYMPHOCYTES ABSOLUTE AUTO 1.34 K/uL (1.00-4.80); LYMPHOCYTES PERCENT AUTO 26.7 % (24.0-44.0); MEAN CORPUSCULAR HEMOGLOBIN 31.9 pg (28.0-32.0); MEAN CORPUSCULAR HGB CONC 35.7 g/dL (32.0-36.0); MEAN CORPUSCULAR VOLUME 89.4 fL (83.0-99.0); MEAN PLATELET VOLUME 10.4 fL (9.4-12.3); NEUTROPHILS ABSOLUTE AUTO 2.87 K/uL (1.80-7.70); NEUTROPHILS PERCENT AUTO 57.1 % (41.0-71.0); PLATELET COUNT,PLT 184 K/uL (150-400); RED BLOOD CELL COUNT 4.61 M/uL (4.10-5.30); WHITE BLOOD CELL COUNT,WBC 5.02 K/uL (3.9-11.3)
[2024-08-24 14:46] LABS: A/G RATIO 1.2 (0.9-1.6); ALBUMIN 3.7 g/dL (3.4-5.0); BILIRUBIN TOTAL 0.5 mg/dL (0.2-1.0); CALCIUM 8.9 mg/dL (8.5-10.1); CARBON DIOXIDE,CO2 27.3 mmol/L (21.0-32.0); CREATININE 0.8 mg/dL (0.6-1.0); EST CRCL DRUG DOSING (CG) 61.86 mL/min; MAGNESIUM 2.2 mg/dL (1.8-2.4); PROTEIN TOTAL,TP 6.9 g/dL (6.4-8.2)
[2024-08-24] MEDS: Iopamidol 755 MG/ML 500 ML Multipack Bottle IVPUSH STA (15:29)
[2024-08-24 15:38] LABS: APPEARANCE,URINE CLEAR; BILIRUBIN,URINE NEGATIVE (NEGATIVE); COLOR,URINE STRAW; GLUCOSE,URINE NEGATIVE (NEGATIVE); KETONES,URINE NEGATIVE (NEGATIVE); LEUKOCYTE ESTERASE,URINE NEGATIVE (NEGATIVE); NITRITE,URINE NEGATIVE (NEGATIVE); OCCULT BLOOD,URINE TRACE-INTACT (NEGATIVE); PROTEIN,URINE NEGATIVE (NEGATIVE); UROBILINOGEN,URINE 0.2 EU/dL (<2.0)
[2024-08-24 15:47] LABS: BACTERIA,URINE RARE (NEGATIVE); MUCUS,URINE NOT SEEN (NONE-MOD); SQUAMOUS EPITHELIAL CELLS,UR RARE; WBC,URINE 0-2 (0-5/HPF)
[2024-08-24] MEDS: Aspirin 81 MG Tab.Chew PO ONE (17:13)
[2024-08-24] MEDS ORDERED: Ondansetron 4 MG/2 ML SDV IVPUSH PRN (18:58)
[2024-08-24] MEDS ORDERED: oxyCODONE 5 MG Tab PO PRN (18:58)
[2024-08-24] MEDS ORDERED: Polyethylene Glycol 3350 Powder 17 GM Packet PO PRN (18:58)
[2024-08-24] MEDS ORDERED: Acetaminophen 325 MG Tab PO PRN (18:58)
[2024-08-24] MEDS ORDERED: Ondansetron 4 MG Tab.DIS PO PRN (18:58)
[2024-08-24] MEDS ORDERED: Docusate Sodium 100 MG Cap PO PRN (18:58)
[2024-08-24] MEDS: Nicotine 7 MG/24 Hr Patch TRDERM SCH (20:58)
[2024-08-24 21:18] LABS: HEMOGLOBIN A1C 5.7 %
[2024-08-24] MEDS: Calcium Carbonate 500 MG Tab.Chew PO PRN (23:11)
[2024-08-25 06:15] LABS: BASOPHILS ABSOLUTE AUTO 0.03 K/uL (0.00-0.20); BASOPHILS PERCENT AUTO 0.7 % (0.0-1.0); EOSINOPHILS ABSOLUTE AUTO 0.15 K/uL (0.00-0.45); EOSINOPHILS PERCENT AUTO 3.3 % (0.0-6.0); HEMATOCRIT 43.2 % (37.0-47.0); HEMOGLOBIN 14.7 g/dL (12.0-16.0); IMMATURE GRAN ABSOLUTE AUTO 0.01 K/uL (0.00-0.05); IMMATURE GRAN PERCENT AUTO 0.2 % (0.0-0.4); LYMPHOCYTES ABSOLUTE AUTO 1.48 K/uL (1.00-4.80); LYMPHOCYTES PERCENT AUTO 32.7 % (24.0-44.0); MEAN CORPUSCULAR HEMOGLOBIN 30.9 pg (28.0-32.0); MEAN CORPUSCULAR VOLUME 90.8 fL (83.0-99.0); MONOCYTES ABSOLUTE AUTO 0.52 K/uL (0.00-0.80); MONOCYTES PERCENT AUTO 11.5 % (0.0-8.0); NEUTROPHILS ABSOLUTE AUTO 2.34 K/uL (1.80-7.70); NEUTROPHILS PERCENT AUTO 51.6 % (41.0-71.0); PLATELET COUNT,PLT 170 K/uL (150-400); RED BLOOD CELL COUNT 4.76 M/uL (4.10-5.30); WHITE BLOOD CELL COUNT,WBC 4.53 K/uL (3.9-11.3)
[2024-08-25] MEDS: Pantoprazole 40 MG Tab.CR PO SCH (06:55)
[2024-08-25 07:50] LABS: A/G RATIO 1.1 (0.9-1.6); ALBUMIN 3.4 g/dL (3.4-5.0); BILIRUBIN TOTAL 0.3 mg/dL (0.2-1.0); CREATININE 0.8 mg/dL (0.6-1.0); EST CRCL DRUG DOSING (CG) 61.86 mL/min; FOLIC ACID 10.7 ng/mL (8.60-58.90); MAGNESIUM 2.2 mg/dL (1.8-2.4); POTASSIUM,K 4.2 mmol/L (3.5-5.1); PROTEIN TOTAL,TP 6.4 g/dL (6.4-8.2)
[2024-08-25] MEDS: Levothyroxine 88 MCG Tab PO SCH (08:03)
[2024-08-25] MEDS: Aspirin 81 MG Tab.Chew PO SCH (10:16)
[2024-08-25 13:12] VITALS: BP 108/55; PULSE 76
[2024-08-26] MEDS ORDERED: Levothyroxine 88 MCG Tab PO SCH (07:30)
== END 2024-08-25 12:55 | disposition home or self-care (01) ==
LOC: MW.ED 13:21 → MW.MS 16:36
PROVIDERS: ADMIT Family Medicine; ATTEND Family Medicine
DX: G45.9 Transient cerebral ischemic attack, unspecified (principal); I10 Essential (primary) hypertension; E78.00 Pure hypercholesterolemia, unspecified; F32.A Depression, unspecified; E03.9 Hypothyroidism, unspecified; Z79.890 Hormone replacement therapy; Z79.899 Other long term (current) drug therapy; Z88.2 Allergy status to sulfonamides; Z91.018 Allergy to other foods; Z88.5 Allergy status to narcotic agent
CPT/HCPCS: 36415; 70450; 70450-26; 70496; 70496-26; 70498; 70498-26; 71045; 71045-26; 80053; 80061; 81001; 82607; 82746; 83036; 83735; 85025; 93005; 93010; 93246; 99285; A9270-GY; G0378; Q9967